=== PATIENT | male | born 1950 | race Caucasian/White ===

== ENCOUNTER 2017-01-21 13:32 | Inpatient (IN) | payer MEDICARE, OTHER ==
[~2017-01-21] VITALS: Ht 172.7 cm; Wt 83.5 kg
--- NOTE | 2017-01-21 14:11 | NUR ---
Pt to CT/xray via AYALA mcelroy noted.
[2017-01-21 14:26] LABS: CALCIUM 8.9 mg/dL (8.5-10.1); CARBON DIOXIDE 29 mmol/L (21-32); CHLORIDE 101 mmol/L (98-107); GFR 43 mL/min (>60); GLUCOSE 275 mg/dL (74-106); POTASSIUM 4.2 mmol/L (3.5-5.1); SODIUM SERUM 139 mmol/L (136-145); UREA NITROGEN, BLOOD 21 mg/dL (7-18)
[2017-01-21 14:27] LABS: *BILIRUBIN,URIN NEGATIVE (NEGATIVE); *BLOOD, URINE Trace-lysed (NEGATIVE); *CLARITY,URINE CLEAR (CLEAR); *COLOR,URINE YELLOW (YELLOW); *KETONES,URINE NEGATIVE (NEGATIVE); *PROTEIN,URINE 2+ (NEGATIVE); *UROBILINOGEN,URINE 0.2 E.U./dl (NORMAL); BASOPHILS % (AUTO) 0.6 % (0.0-2.0); EOSINOPHILS # (AUTO) 0.2 K/uL (0.0-0.7); EOSINOPHILS % (AUTO) 2.5 % (0.0-7.0); HEMATOCRIT 41.4 % (40-50); LEUKOCYTE ESTERASE ,URINE NEGATIVE (NEGATIVE); LYMPHOCYTES # (AUTO) 1.7 K/UL (0.8-4.8); LYMPHOCYTES % (AUTO) 25.5 % (20.5-51.5); MEAN CORPUSCULAR HEMOGLOBIN 31.1 UUG (27.0-31.0); MEAN CORPUSCULAR HGB CONC 34 g/dL (32.0-37.0); MEAN CORPUSCULAR VOLUME 91.8 FL (82.0-92.0); MONOCYTES # (AUTO) 0.5 K/UL (0.1-1.30); MONOCYTES % (AUTO) 6.9 % (0.0-11.0); NEUTROPHILS # (AUTO) 4.4 K/UL (1.8-8.9); NEUTROPHILS % (AUTO) 64.5 % (38.5-71.5); NITRITE, URINE NEGATIVE (NEGATIVE); PH,URINE 5.5 (5.0-8.0); PLATELET COUNT (AUTO) 308 K/UL (150-450); RED BLOOD CELL COUNT(AUTO) 4.51 MIL/UL (4.7-6.1); RED CELL DISTRIBUTION WIDTH 12.9 % (11.5-14.5); WHITE BLOOD COUNT (AUTO) 6.8 K/UL (4.0-11.2)
[2017-01-21 14:31] LABS: CREATININE 1.6 mg/dL (0.6-1.3)
[2017-01-21 14:34] LABS: ALANINE AMINOTRANSFERASE 14 U/L (16-63); ALBUMIN 3.6 g/dL (3.4-5.0); ALKALINE PHOSPHATASE 95 U/L (50-136); ASPARTATE AMINOTRANSFERASE 9 U/L (15-37); BILIRUBIN,DIRECT 0.1 mg/dL (0.0-0.2); BILIRUBIN,TOTAL 0.2 mg/dL (0.2-1.0); TOTAL PROTEIN, SERUM 8.7 g/dL (6.4-8.2); TROPONIN I < 0.017 ng/mL (0.00-0.056)
[2017-01-21 14:35] LABS: ACETAMINOPHEN < 2.0 ug/mL (10-30)
[2017-01-21 14:40] LABS: LACTIC ACID 1.2 mmol/L (0.4-2.0)
[2017-01-21 14:42] LABS: UGLUCOSE 2+ (NEGATIVE)
[2017-01-21 14:45] LABS: ETHANOL < 3 MG/DL (0-0)
[2017-01-21 14:46] LABS: *AMPHETAMINE, URINE NEGATIVE (NEGATIVE); *BARBITURATE, URINE NEGATIVE (NEGATIVE); *CANNABINOID, URINE NEGATIVE (NEGATIVE); *COCCAINE, URINE NEGATIVE (NEGATIVE); *OPIATE, URINE NEGATIVE (NEGATIVE); *PHENCYCLIDINE SCREEN,URINE NEGATIVE (NEGATIVE)
[2017-01-21 14:49] LABS: AMMONIA < 10 umol/L (11-32)
[2017-01-21 14:54] LABS: RBC,URINE 0-3 /HPF (0-3); SQUAMOUS EPITHELIAL CELL,UR FEW /HPF (NONE SEEN); WBC,URINE 0-3 /HPF (0-3)
--- NOTE | 2017-01-21 15:07 | NUR ---
Per Dr Bradshaw pt is medically clear and may be trans to MHU.
[2017-01-21 15:10] LABS: THYROID STIMULATING HORMONE 0.627 mIU/mL (0.358-3.740)
--- NOTE | 2017-01-21 15:31 | NUR ---
Pt trans to [facility]HU, NAD noted.
[2017-01-21] MEDS ORDERED: TEMAZEPAM 7.5 MG CAPSULE PO PRN (16:45)
[2017-01-21] MEDS ORDERED: MAG HYDROX/AL HYDROX/SIMETH 30 ML LIQUID UDC PO PRN (16:45)
[2017-01-21] MEDS ORDERED: ACETAMINOPHEN 325 MG TABLET PO PRN (16:45)
[2017-01-21] MEDS ORDERED: MAGNESIUM HYDROXIDE 30 ML LIQUID UDC PO PRN (16:45)
[2017-01-21] MEDS ORDERED: ACETAMINOPHEN 650 MG SUPP.RECT RC PRN (16:45)
[2017-01-21] MEDS ORDERED: LORAZEPAM 0.5 MG TABLET PO PRN (16:45)
--- NOTE | 2017-01-21 17:00 | NUR ---
Patient admitted from [facility]. Patient reportedly found wondering multiple times outside of the facility. Patient redirected multiple times. Patient even tried taking a bus to see his family , according to patient. Patient does not know where any of his family members live. Patient has history of hypertension and diabetes. MD notified. Md to put in orders.
[2017-01-21] MEDS ORDERED: MELA3TAB PO (18:58)
[2017-01-21] MEDS ORDERED: LISI-603 PO (18:58)
[2017-01-21] MEDS ORDERED: DONE10TA44 PO (18:58)
[2017-01-21] MEDS ORDERED: SIMV20TA6 PO (18:58)
[2017-01-21] MEDS ORDERED: LINA5TAB PO (18:58)
[2017-01-21 20:00] VITALS: BP 142/89
[2017-01-22 07:13] LABS: BASOPHILS % (AUTO) 0.5 % (0.0-2.0); EOSINOPHILS # (AUTO) 0.2 K/uL (0.0-0.7); EOSINOPHILS % (AUTO) 2.8 % (0.0-7.0); HEMATOCRIT 40.8 % (40-50); HEMOGLOBIN 13.7 G/DL (14.0-18.0); LYMPHOCYTES # (AUTO) 1.7 K/UL (0.8-4.8); LYMPHOCYTES % (AUTO) 29.2 % (20.5-51.5); MEAN CORPUSCULAR HEMOGLOBIN 30.9 UUG (27.0-31.0); MEAN CORPUSCULAR HGB CONC 34 g/dL (32.0-37.0); MEAN CORPUSCULAR VOLUME 91.5 FL (82.0-92.0); MONOCYTES # (AUTO) 0.4 K/UL (0.1-1.30); MONOCYTES % (AUTO) 7.4 % (0.0-11.0); NEUTROPHILS # (AUTO) 3.4 K/UL (1.8-8.9); NEUTROPHILS % (AUTO) 60.1 % (38.5-71.5); PLATELET COUNT (AUTO) 309 K/UL (150-450); RED BLOOD CELL COUNT(AUTO) 4.45 MIL/UL (4.7-6.1); RED CELL DISTRIBUTION WIDTH 12.9 % (11.5-14.5); WHITE BLOOD COUNT (AUTO) 5.8 K/UL (4.0-11.2)
[2017-01-22 07:30] VITALS: BP 141/83
[2017-01-22] MEDS: DIVALPROEX 125 MG TABLET.DR PO SCH ×3 (08:05→16:15)
[2017-01-22 08:06] LABS: ALBUMIN 3.4 g/dL (3.4-5.0); BILIRUBIN,TOTAL 0.6 mg/dL (0.2-1.0); CREATININE 1.2 mg/dL (0.6-1.3); PHOSPHOROUS 2.6 mg/dL (2.5-4.9); POTASSIUM 4.3 mmol/L (3.5-5.1); TOTAL PROTEIN, SERUM 8.3 g/dL (6.4-8.2)
[2017-01-22] MEDS ORDERED: DEXTROSE 50% 50 ML DISP.SYRIN IV PRN (09:00)
[2017-01-22] MEDS: METFORMIN HCL 500 MG TABLET PO SCH ×2 (09:13→17:09)
[2017-01-22] MEDS: glipiZIDE 5 MG TABLET PO SCH ×2 (09:13→15:53)
[2017-01-22] MEDS: LISINOPRIL 5 MG TABLET PO SCH (09:13)
[2017-01-22] MEDS: BLOOD SUGAR DIAGNOSTIC 1 EACH STRIP VI SCH ×3 (11:47→21:06)
[2017-01-22] MEDS: INSULIN REGULAR, HUMAN 300 UNIT/3 ML VIAL SQ PRN (11:49)
[2017-01-22 15:00] VITALS: BP 109/66
[2017-01-22 20:21] VITALS: BP 105/69
[2017-01-23] MEDS: BLOOD SUGAR DIAGNOSTIC 1 EACH STRIP VI SCH ×4 (06:27→20:35)
[2017-01-23 07:30] VITALS: BP 105/65
[2017-01-23] MEDS: LISINOPRIL 5 MG TABLET PO SCH (08:10)
[2017-01-23] MEDS: glipiZIDE 5 MG TABLET PO SCH ×2 (08:10→16:07)
[2017-01-23] MEDS: METFORMIN HCL 500 MG TABLET PO SCH ×2 (08:10→17:16)
[2017-01-23] MEDS: DIVALPROEX 125 MG TABLET.DR PO SCH ×3 (08:10→16:07)
[2017-01-23 16:18] VITALS: BP 139/78
--- NOTE | 2017-01-23 17:17 | NUR ---
Pt remains calm and cooperative. Compliant with medications and care. No aggresive or combative behavior noted. Blood glucose noted 59 mg/dl. Metformin held. Pt is asymptomatic. Administered 2 cups of orange juice with sugar. Will continue to monitor.
[2017-01-23 20:00] VITALS: BP 134/81
[2017-01-24] MEDS: BLOOD SUGAR DIAGNOSTIC 1 EACH STRIP VI SCH ×4 (06:22→20:56)
[2017-01-24] MEDS ORDERED: glipiZIDE 5 MG TABLET PO SCH (07:30)
[2017-01-24 07:45] VITALS: BP 110/58
[2017-01-24] MEDS: DIVALPROEX 125 MG TABLET.DR PO SCH ×4 (09:26→20:55)
[2017-01-24] MEDS: METFORMIN HCL 500 MG TABLET PO SCH ×2 (09:27→17:06)
[2017-01-24] MEDS: LISINOPRIL 5 MG TABLET PO SCH (09:27)
--- NOTE | 2017-01-24 12:32 | NUR ---
Initial discharge instructions: Pt resides at [facility] [[address] [place], [place],[address];[phone]].Pt was confused and unable to report if he wanted to return back.Per daughterRenee [phone] she agrees to pt either returning back there or possibly SNF if recommended.SW called and left voicemail for Nieves at the facility.SW will speak with pt,family,and MD regarding appropriate discharge plans.SW will form a safe and proper discharge.
[2017-01-24 20:40] VITALS: BP 107/59
--- NOTE | 2017-01-24 20:40 | NUR ---
PT'S A/A/O X2 AND ABLE TO USE WHEELCHAIR TO BATHROOM APPROPRIATELY BEHAVIOR,COOPERATIVE W/CARE AND MEDICATIONS NOTED.SNACK'S GIVEN PRIOR TO BED DUE TO EPISODE OF HYPOGLYCEMIA DURING THE DAY TIME TODAY,PT'S ABLE TO TOLERATED WELL WITH SNACK;100% NOTED.KEPT COMFORT.PT'S ABLE TO GO BACK TO BED UNDER SUPERVISION.KEPT COMFORT.CONTINUED MONITORING TO PT.
--- NOTE | 2017-01-25 06:00 | NUR ---
ASSISTED PT TO TAKE SHOWER THIS MORNING;PT'S COOPERATIVE W/ASSISTANCE.NO DISTRESS NOTED IN THE SHIFT.PT SLEPT FOR 8 HOURS 30 MINUTES.NO DISTRESS NOTED IN THE SHIFT.PT REMAINED FREE FROM INJURY.SAFETY RENDER.
[2017-01-25 07:30] VITALS: BP 96/54
[2017-01-25] MEDS: DIVALPROEX 125 MG TABLET.DR PO SCH ×2 (08:28→20:25)
[2017-01-25] MEDS: METFORMIN HCL 500 MG TABLET PO SCH ×2 (08:28→17:44)
[2017-01-25] MEDS: LISINOPRIL 5 MG TABLET PO SCH (08:29)
[2017-01-25] MEDS: BLOOD SUGAR DIAGNOSTIC 1 EACH STRIP VI SCH ×3 (11:36→20:26)
[2017-01-25 16:09] VITALS: BP 119/69
[2017-01-25 20:25] VITALS: BP 125/76
[2017-01-25] MEDS: INSULIN REGULAR, HUMAN 300 UNIT/3 ML VIAL SQ PRN (20:29)
[2017-01-26] MEDS: BLOOD SUGAR DIAGNOSTIC 1 EACH STRIP VI SCH ×4 (06:19→20:33)
[2017-01-26 07:30] VITALS: BP 111/73
[2017-01-26] MEDS: METFORMIN HCL 500 MG TABLET PO SCH ×2 (08:39→18:31)
[2017-01-26] MEDS: DIVALPROEX 125 MG TABLET.DR PO SCH ×2 (08:39→20:25)
[2017-01-26] MEDS: ESCITALOPRAM OXALATE 10 MG TABLET PO SCH (08:39)
[2017-01-26] MEDS: LISINOPRIL 5 MG TABLET PO SCH (08:49)
[2017-01-26 16:00] VITALS: BP 143/87
[2017-01-26] MEDS: INSULIN REGULAR, HUMAN 300 UNIT/3 ML VIAL SQ PRN ×2 (17:18→20:42)
[2017-01-26 20:05] VITALS: BP 120/75
--- NOTE | 2017-01-26 22:00 | NUR ---
received to care, lying in bed, isolating by self, but pleasant upon approach. compliant with medications and staff direction. bedtime snack given. as of 2200, he appears to be asleep. no distress noted. will continue to monitor closely.
--- NOTE | 2017-01-27 06:00 | NUR ---
slept 7.5 hours. assisted with am care, and shower. no distress noted.
[2017-01-27] MEDS: BLOOD SUGAR DIAGNOSTIC 1 EACH STRIP VI SCH ×4 (06:50→20:41)
[2017-01-27 07:30] VITALS: BP 111/7
[2017-01-27] MEDS: ESCITALOPRAM OXALATE 10 MG TABLET PO SCH (09:43)
[2017-01-27] MEDS: METFORMIN HCL 500 MG TABLET PO SCH ×2 (09:43→17:18)
[2017-01-27] MEDS: DIVALPROEX 125 MG TABLET.DR PO SCH ×2 (09:43→20:25)
[2017-01-27] MEDS: LISINOPRIL 5 MG TABLET PO SCH (09:44)
[2017-01-27] MEDS: INSULIN REGULAR, HUMAN 300 UNIT/3 ML VIAL SQ PRN ×2 (12:46→20:44)
[2017-01-27 16:00] VITALS: BP 125/75
[2017-01-27 20:21] VITALS: BP 131/77
--- NOTE | 2017-01-28 06:00 | NUR ---
slept 5.5 hours, total. continues to sleep. no distress noted.
[2017-01-28] MEDS: BLOOD SUGAR DIAGNOSTIC 1 EACH STRIP VI SCH ×2 (06:49→13:15)
[2017-01-28 07:25] LABS: CALCIUM 8.7 mg/dL (8.5-10.1); POTASSIUM 4.8 mmol/L (3.5-5.1)
[2017-01-28 07:30] VITALS: BP 101/62
[2017-01-28 07:33] LABS: CREATININE 1.6 mg/dL (0.6-1.3)
--- NOTE | 2017-01-28 08:23 | NUR ---
DC note: Patient will be discharged to [facility] [[address] [place] [address]; ] via ambulance at 1:00 pm. Please schedule an ambulance for the patient. Spoke with Neena at the facility who stated she would accept the patient today. Patient is assigned to room 24C. Spoke with patient's Daughter, Renee [phone] who is aware and agreeable with discharge plans. Patient is aware and agreeable with discharge plans. Patient will follow-up with (Wad Impregnator) and (Psychiatrist) at the facility.
[2017-01-28] MEDS: DIVALPROEX 125 MG TABLET.DR PO SCH (08:52)
[2017-01-28] MEDS: ESCITALOPRAM OXALATE 10 MG TABLET PO SCH (08:52)
[2017-01-28] MEDS: METFORMIN HCL 500 MG TABLET PO SCH (08:52)
[2017-01-28 08:53] VITALS: BP 101/62
[2017-01-28] MEDS: LISINOPRIL 5 MG TABLET PO SCH (08:53)
--- NOTE | 2017-01-28 15:43 | NUR ---
PT IS ALERT/ORIENTED X 3. PT IS AWARE OF HIS DISCHARGE AND WILLING TO GO. NO DISTRESS NOTED. PT IS BEING DISCHARGED TO [facility]. PT IS BEING PICKED UP BY THE AMBULANCE. REPORT WAS CALLED AND GIVEN TO NICOLE MC. ALL BELONGING RETURNED.
== END 2017-01-28 15:30 | DRG 885 ==
LOC: ER 13:34 → GPS 16:05
PROVIDERS: ADMIT Psychiatry & Neurology Psychiatry; ATTEND Psychiatry & Neurology Psychiatry
DX: F39 Unspecified mood [affective] disorder (principal); F01.50 Vascular dementia, unspecified severity, without behavioral disturbance, psychotic disturbance, mood disturbance, and anxiety; N17.0 Acute kidney failure with tubular necrosis; E11.65 Type 2 diabetes mellitus with hyperglycemia; F29 Unspecified psychosis not due to a substance or known physiological condition; E78.5 Hyperlipidemia, unspecified; H02.402 Unspecified ptosis of left eyelid; I10 Essential (primary) hypertension; Z86.73 Personal history of transient ischemic attack (TIA), and cerebral infarction without residual deficits; Z91.19 Patient's noncompliance with other medical treatment and regimen; E11.649 Type 2 diabetes mellitus with hypoglycemia without coma
CPT/HCPCS: 36415; 70030-TC; 70450; 71010; 76705; 80307; 82306; 83605; 83735; 84100; 84443; 85025; 85730; 87040; 87086; 93005; 97001; 97116; 97530; A4663; G0480-TC; G6040-TC; J1815

== ENCOUNTER 2018-04-08 23:36 | Inpatient (IN) | payer MEDICARE, OTHER ==
[~2018-04-08] VITALS: Ht 172.7 cm; Wt 73.5 kg
[~2018-04-08 23:36] MED LIST: LINA5TAB PO; LISI-603 PO; MELA3TAB PO; SIMV20TA6 PO
[2018-04-09] MEDS ORDERED: CEFTRIAXONE 1 G in IV DEXTROSE 5% 50 ML IV ONE ×2
[2018-04-09] MEDS ORDERED: IV NORMAL SALINE 500 ML BAG IV ONE
--- NOTE | 2018-04-09 00:02 | NUR ---
PT IN BED RESTING QUIETLY. PT IS AAOX1. PT'S LUNG SOUNDS ARE CLEAR BILATERALLY AND BREATH SOUND ARE EVEN AND UNLABORED. PT'S ABDOMEN IS FLAT AND NON-TENDER W/ BOWEL SOUNDS PRESENT IN ALL 4 QUADRANTS. CAP REFILL <3 SEC IN ALL FOUR EXTREMITIES. PT IS CALM AND COOPERATIVE. NO SIGNS OF DISTRESS WITNESSED AT THIS TIME.
[2018-04-09 00:29] LABS: BASOPHILS % (AUTO) 0.3 % (0.0-2.0); EOSINOPHILS % (AUTO) 0.1 % (0.0-7.0); HEMATOCRIT 30.3 % (36.7-47.1); HEMOGLOBIN 10.7 g/dL (12.5-16.3); LYMPHOCYTES # (AUTO) 1.3 K/uL (20.0-40.0); LYMPHOCYTES % (AUTO) 14.9 % (20.5-51.5); MEAN CORPUSCULAR HEMOGLOBIN 33.9 uug (23.8-33.4); MEAN CORPUSCULAR HGB CONC 35 g/dL (32.5-36.3); MEAN CORPUSCULAR VOLUME 95.9 fL (73.0-96.2); MONOCYTES # (AUTO) 0.8 K/uL (2.0-10.0); MONOCYTES % (AUTO) 8.7 % (0.0-11.0); NEUTROPHILS # (AUTO) 6.7 K/uL (1.8-8.9); PLATELET COUNT (AUTO) 194 K/uL (152-348); RED BLOOD CELL COUNT(AUTO) 3.16 MIL/uL (4.06-5.63); WHITE BLOOD COUNT (AUTO) 8.8 K/uL (3.6-10.2)
[2018-04-09] MEDS ORDERED: ESCI10TA PO (00:38)
[2018-04-09] MEDS ORDERED: LISI-607 PO (00:38)
[2018-04-09] MEDS ORDERED: ONDA4TAB8 PO (00:38)
[2018-04-09] MEDS ORDERED: LORA0.5T PO (00:38)
[2018-04-09] MEDS ORDERED: DIVA125C PO (00:38)
[2018-04-09] MEDS ORDERED: METF10004 PO (00:38)
[2018-04-09] MEDS ORDERED: DOCU100C36 PO (00:38)
[2018-04-09] MEDS ORDERED: TEMA15CA PO (00:38)
[2018-04-09] MEDS ORDERED: DONE10TA44 PO (00:38)
[2018-04-09] MEDS ORDERED: CEFTRIAXONE 1 G VIAL ONE (00:39)
[2018-04-09 00:43] LABS: CREATININE 1.7 mg/dL (0.6-1.3); POTASSIUM 5.1 mmol/L (3.5-5.1)
[2018-04-09] MEDS ORDERED: LIDOCAINE 2% (UROJET) 10 ML JELLY MM ONE ×2 (00:47)
[2018-04-09 00:55] LABS: BILIRUBIN,DIRECT 0.2 mg/dL (0.0-0.2); BILIRUBIN,TOTAL 0.5 mg/dL (0.2-1.0); TOTAL PROTEIN, SERUM 6.6 g/dL (6.4-8.2)
--- NOTE | 2018-04-09 00:55 | NUR ---
SKIN IRRITATION NOTED ON PENIS--LOOKS LIKE POTENTIAL INFECTION. MD HERBERT MADE AWARE.
[2018-04-09 01:18] LABS: *BILIRUBIN,URIN NEGATIVE (NEGATIVE); *BLOOD, URINE NEGATIVE (NEGATIVE); *CLARITY,URINE CLEAR (CLEAR); *COLOR,URINE YELLOW (YELLOW); *KETONES,URINE NEGATIVE (NEGATIVE); *PROTEIN,URINE NEGATIVE (NEGATIVE); LEUKOCYTE ESTERASE ,URINE NEGATIVE (NEGATIVE); NITRITE, URINE NEGATIVE (NEGATIVE); UGLUCOSE NEGATIVE (NEGATIVE)
[2018-04-09 01:32] LABS: BACTERIA,URINE NONE SEEN /HPF (NONE SEEN); RBC,URINE NONE SEEN /HPF (0-3); SQUAMOUS EPITHELIAL CELL,UR FEW /HPF (NONE SEEN); WBC,URINE 0-3 /HPF (0-3)
--- NOTE | 2018-04-09 01:35 | NUR ---
PANEL CALL PLACED TO [facility] FOR ADMISSION
--- NOTE | 2018-04-09 01:50 | NUR ---
REPORT GIVEN TO MEDSUR NURSELY RN
[2018-04-09] MEDS ORDERED: Z GUARD REMEDY PASTE 57 GM TUBE TOP PRN (02:15)
[2018-04-09] MEDS ORDERED: MELATONIN 3 MG TABLET PO PRN (02:15)
[2018-04-09] MEDS ORDERED: MAGNESIUM HYDROXIDE 30 ML LIQUID UDC PO PRN (02:15)
[2018-04-09] MEDS ORDERED: DEXTROSE 50% 50 ML DISP.SYRIN IV PRN (02:15)
[2018-04-09] MEDS ORDERED: LORAZEPAM 0.5 MG TABLET PO PRN (02:15)
[2018-04-09] MEDS ORDERED: ONDANSETRON 4 MG/2 ML VIAL IV PRN (02:15)
[2018-04-09] MEDS ORDERED: ACETAMINOPHEN 325 MG TABLET PO PRN (02:15)
[2018-04-09] MEDS ORDERED: HYDROCODONE/APAP 5-325MG TABLET PO PRN (02:15)
[2018-04-09] MEDS ORDERED: TEMAZEPAM 15 MG CAPSULE PO PRN (02:15)
--- NOTE | 2018-04-09 02:15 | NUR ---
Pt. admitted to [facility], under care of CHARISSA GLASS Belongs List completed
[2018-04-09 03:00] VITALS: BP 90/56
[2018-04-09] MEDS: IV NS 1000 ML 1,000 ML IV PRN ×2 (03:25→16:43)
--- NOTE | 2018-04-09 04:00 | NUR ---
Pt transferred to room 210. Pt oriented to room. Call light within reach. Perineal care provided by TRIMMING ASSEMBLER. Noted patient has ulcer on right penis area. Photographed and placed in chart. Noted R AC 18G intact and patent. NS at 75cc/hr initiated. No complaints of pain at this time. Frequent visual checks done. Noted temperature now 98.2. No s/s of hyper or hypoglycemia noted. Will continue to monitor.
[2018-04-09] MEDS: BLOOD SUGAR DIAGNOSTIC 1 EACH STRIP VI SCH ×4 (06:25→20:10)
--- NOTE | 2018-04-09 06:29 | NUR ---
Telma-care provided second time by MARYURI. Patient BGL checked and noted to be 110mg/dl. No coverage given. IV site continues to remain intact and patent. No complaints of pain. Bed alarm engaged. Bed in low position. Call light in reach. Will continue to monitor.
[2018-04-09 08:00] VITALS: BP 106/60
--- NOTE | 2018-04-09 08:00 | NUR ---
AWAKE COOPERATE NO SOB OR PAIN VS TAKEN NO FEVER EAT BREAKFAST WELL FLD RESTRICTION 1000ML/DAY ORDER ON ASPIRATION AND FALL PRECAUTION BED ALARM ON AND CALL LIGHT IN REACH
[2018-04-09] MEDS: DOCUSATE SODIUM 100 MG CAPSULE PO SCH ×2 (08:39→16:49)
[2018-04-09] MEDS: ESCITALOPRAM OXALATE 10 MG TABLET PO SCH (08:40)
[2018-04-09] MEDS: DIVALPROEX SPRINKLE 125 MG CAP.SPRINK PO SCH ×2 (08:40→20:10)
[2018-04-09] MEDS ORDERED: LISINOPRIL 5 MG TABLET PO SCH (09:00)
[2018-04-09 11:14] VITALS: BP 99/63
[2018-04-09] MEDS: INSULIN REGULAR, HUMAN 300 UNIT/3 ML VIAL SQ PRN ×2 (11:57→20:08)
[2018-04-09 12:52] LABS: *CREATININE,URINE 62.2 mg/dL (30-125); *URINE TOTAL PROTEIN RANDOM 12.9 mg/dL (<150/24HR)
[2018-04-09 12:55] LABS: *BILIRUBIN,URIN NEGATIVE (NEGATIVE); *BLOOD, URINE NEGATIVE (NEGATIVE); *CLARITY,URINE CLEAR (CLEAR); *COLOR,URINE YELLOW (YELLOW); *KETONES,URINE NEGATIVE (NEGATIVE); *PROTEIN,URINE NEGATIVE (NEGATIVE); LEUKOCYTE ESTERASE ,URINE NEGATIVE (NEGATIVE); NITRITE, URINE NEGATIVE (NEGATIVE); PH,URINE 8.5 (5.0-8.0); UGLUCOSE NEGATIVE (NEGATIVE)
[2018-04-09 13:04] LABS: BACTERIA,URINE NONE SEEN /HPF (NONE SEEN); RBC,URINE 0-3 /HPF (0-3); SQUAMOUS EPITHELIAL CELL,UR FEW /HPF (NONE SEEN); WBC,URINE 0-3 /HPF (0-3)
[2018-04-09 15:33] VITALS: BP 101/57
--- NOTE | 2018-04-09 17:50 | NUR ---
STABLE HEMODYNAMIC STATUS MORE AWAKE AND ORTX2 FOLLOW SIMPLE DIRECTION WELL NO ACUTE DISTRESS OR PAIN SAFETY MEASURE PROVIDED CALL LIGHT IN REACH
[2018-04-09 19:00] VITALS: BP 106/65
[2018-04-09] MEDS: DONEPEZIL 10 MG TABLET PO SCH (20:11)
--- NOTE | 2018-04-09 21:00 | NUR ---
Nursing Note: Pt resting in bed eyes open. Able to respond yes/no to questions. Noted with periods of confusion. Perineal care provided by PEDIATRIC MEDICAL ASSISTANT x 2. No BM noted at this time. Noted R AC 18G intact and patent infusing normal saline at 75cc/hr . No signs and symptoms of infiltration noted at site. BGL checked and insulin given per sliding scale. No complaints of pain at this time. Frequent visual checks done. Pt afebrile. No s/s of hyper or hypoglycemia noted. Will continue to monitor.
--- NOTE | 2018-04-10 01:00 | NUR ---
Nursing Notes: Pt noted with periods of wakefulness and sleeping. Antibiotic administered. Will monitor for adverse reactions. Bed kept in low position. Pt kept clean and dry. Bed in low position. No acute distress noted. No fever noted this shift. Frequent visual checks. Will continue to monitor.
[2018-04-10] MEDS: CEFTRIAXONE 1 G in IV DEXTROSE 5% 50 ML IV SCH (01:28)
[2018-04-10 04:00] VITALS: BP 131/70
[2018-04-10 06:07] LABS: BASOPHILS % (AUTO) 0.4 % (0.0-2.0); EOSINOPHILS # (AUTO) 0.1 K/uL (0.0-0.7); EOSINOPHILS % (AUTO) 1.7 % (0.0-7.0); HEMATOCRIT 31.9 % (36.7-47.1); LYMPHOCYTES # (AUTO) 1.1 K/uL (20.0-40.0); LYMPHOCYTES % (AUTO) 22.8 % (20.5-51.5); MEAN CORPUSCULAR HEMOGLOBIN 32.8 uug (23.8-33.4); MEAN CORPUSCULAR HGB CONC 35 g/dL (32.5-36.3); MEAN CORPUSCULAR VOLUME 94.7 fL (73.0-96.2); MONOCYTES # (AUTO) 0.5 K/uL (2.0-10.0); MONOCYTES % (AUTO) 10.2 % (0.0-11.0); NEUTROPHILS # (AUTO) 3.2 K/uL (1.8-8.9); NEUTROPHILS % (AUTO) 64.9 % (38.5-71.5); PLATELET COUNT (AUTO) 186 K/uL (152-348); RED BLOOD CELL COUNT(AUTO) 3.37 MIL/uL (4.06-5.63); WHITE BLOOD COUNT (AUTO) 4.9 K/uL (3.6-10.2)
[2018-04-10] MEDS: IV NS 1000 ML 1,000 ML IV PRN (06:15)
[2018-04-10 06:24] LABS: BILIRUBIN,TOTAL 0.2 mg/dL (0.2-1.0); CREATININE 1.2 mg/dL (0.6-1.3); MAGNESIUM 1.4 mg/dL (1.8-2.4); PHOSPHOROUS 3.5 mg/dL (2.5-4.9); POTASSIUM 4.5 mmol/L (3.5-5.1); TOTAL PROTEIN, SERUM 6.5 g/dL (6.4-8.2)
[2018-04-10 06:30] LABS: THYROID STIMULATING HORMONE 1.082 mIU/mL (0.358-3.740)
[2018-04-10] MEDS: BLOOD SUGAR DIAGNOSTIC 1 EACH STRIP VI SCH ×4 (06:39→20:36)
[2018-04-10] MEDS: DIVALPROEX SPRINKLE 125 MG CAP.SPRINK PO SCH ×2 (08:32→20:35)
[2018-04-10] MEDS: ESCITALOPRAM OXALATE 10 MG TABLET PO SCH (08:32)
[2018-04-10] MEDS: DOCUSATE SODIUM 100 MG CAPSULE PO SCH ×2 (08:32→16:56)
[2018-04-10] MEDS ORDERED: ENOXAPARIN SODIUM 30 MG/0.3 ML DISP.SYRIN SUBCUT SCH (08:45)
[2018-04-10] MEDS: ENOXAPARIN SODIUM 40 MG/0.4 ML DISP.SYRIN SQ SCH (09:28)
[2018-04-10] MEDS ORDERED: MAGNESIUM SULFATE 1 GM in IV DEXTROSE 5% 50 ML IV ONE (10:30)
[2018-04-10 11:30] VITALS: BP 116/60
--- NOTE | 2018-04-10 13:48 | NUR ---
pt not npo for abdominal us. spoke to debra villanueva and will place pt npo after midnight. ultrasound well be done tmrw AM
[2018-04-10 15:09] VITALS: BP 100/58
[2018-04-10] MEDS: INSULIN REGULAR, HUMAN 300 UNIT/3 ML VIAL SQ PRN ×2 (16:54→20:34)
--- NOTE | 2018-04-10 18:43 | NUR ---
PT KEPT CLEAN AND DRY, NO SIGNS OF SKIN BREAK DOWN, PT NOW HEP LOCK, BED IN LOW AND LOCKED POSITION. NO ACUTE DISTRESS NOTED, NO SIGNS OF FEVER DURING SHIFT. PT IS INTERMITTENTLY SLEEPING AND AWAKE, AOX1. PT ATTEMPTS TO FEED SELF BUT IS GIVEN ASSISTANCE. CONTINUE TO MONITOR PT.
--- NOTE | 2018-04-10 19:15 | NUR ---
RECEIVED PT AWAKE, ALERT, ORIENTEDX1. PT SHOWS NO SIGNS OF ACUTE DISTRESS. IV INTACT AND PATENT. BED ALARM ON. SAFETY AND COMFORT PROVIDED. WILL CONTINUE TO MONITOR.
[2018-04-10 20:17] VITALS: BP 109/60
[2018-04-10] MEDS: DONEPEZIL 10 MG TABLET PO SCH (20:35)
[2018-04-11] MEDS: CEFTRIAXONE 1 G in IV DEXTROSE 5% 50 ML IV SCH (00:24)
[2018-04-11 04:00] VITALS: BP 120/78
--- NOTE | 2018-04-11 06:06 | NUR ---
PT SLEPT THROUGHOUT THE SHIFT. PT SHOWS NO SIGNS OF DISTRESS. PRESCRIBED MEDICATION GIVEN AND PT TOLERATED IT WELL.CALL LIGHT WITHIN REACH.IV INTACT AND PATENT.SAFETY AND COMFORT PROVIDED. WILL ENDORSE ACCORDINGLY FOR CONTINUITY OF CARE.
[2018-04-11] MEDS: BLOOD SUGAR DIAGNOSTIC 1 EACH STRIP VI SCH ×4 (06:32→20:54)
[2018-04-11 06:46] LABS: BASOPHILS % (AUTO) 0.4 % (0.0-2.0); EOSINOPHILS # (AUTO) 0.1 K/uL (0.0-0.7); EOSINOPHILS % (AUTO) 2.9 % (0.0-7.0); HEMATOCRIT 32.8 % (36.7-47.1); HEMOGLOBIN 11.6 g/dL (12.5-16.3); LYMPHOCYTES # (AUTO) 1.5 K/uL (20.0-40.0); LYMPHOCYTES % (AUTO) 32.4 % (20.5-51.5); MEAN CORPUSCULAR HEMOGLOBIN 33.6 uug (23.8-33.4); MEAN CORPUSCULAR HGB CONC 35 g/dL (32.5-36.3); MEAN CORPUSCULAR VOLUME 95.1 fL (73.0-96.2); MONOCYTES # (AUTO) 0.6 K/uL (2.0-10.0); MONOCYTES % (AUTO) 12.5 % (0.0-11.0); NEUTROPHILS # (AUTO) 2.4 K/uL (1.8-8.9); NEUTROPHILS % (AUTO) 51.8 % (38.5-71.5); PLATELET COUNT (AUTO) 202 K/uL (152-348); RED BLOOD CELL COUNT(AUTO) 3.45 MIL/uL (4.06-5.63); WHITE BLOOD COUNT (AUTO) 4.7 K/uL (3.6-10.2)
[2018-04-11 07:05] LABS: BILIRUBIN,TOTAL 0.2 mg/dL (0.2-1.0); CREATININE 1.2 mg/dL (0.6-1.3); MAGNESIUM 1.7 mg/dL (1.8-2.4); POTASSIUM 4.2 mmol/L (3.5-5.1); TOTAL PROTEIN, SERUM 6.4 g/dL (6.4-8.2)
[2018-04-11] MEDS: DOCUSATE SODIUM 100 MG CAPSULE PO SCH ×2 (08:15→16:42)
[2018-04-11] MEDS: DIVALPROEX SPRINKLE 125 MG CAP.SPRINK PO SCH ×2 (08:15→20:50)
[2018-04-11] MEDS: ESCITALOPRAM OXALATE 10 MG TABLET PO SCH (08:15)
[2018-04-11] MEDS: ENOXAPARIN SODIUM 40 MG/0.4 ML DISP.SYRIN SQ SCH (08:17)
[2018-04-11 11:32] VITALS: BP 123/71
[2018-04-11 16:00] VITALS: BP 132/79
--- NOTE | 2018-04-11 18:42 | NUR ---
PT IS RESTING IN BED, WITH NO SIGNS OF RESPIRATORY DISTRESS. CALM, COOPERATIVE, AOX1. CONTINUE TO MONITOR.
--- NOTE | 2018-04-11 20:00 | NUR ---
Observed to be resting with no s/s of acute distress noted at this time. Safe environment implemented at all times.
[2018-04-11 20:04] VITALS: BP 120/67
[2018-04-11] MEDS: DONEPEZIL 10 MG TABLET PO SCH (20:51)
[2018-04-12] MEDS: CEFTRIAXONE 1 G in IV DEXTROSE 5% 50 ML IV SCH (00:28)
[2018-04-12 04:42] VITALS: BP 115/65
[2018-04-12 06:06] LABS: HEPATITIS B SURFACE AB Reactive (.); HEPATITIS B SURFACE AG Negative (Negative)
[2018-04-12] MEDS: BLOOD SUGAR DIAGNOSTIC 1 EACH STRIP VI SCH ×3 (06:32→16:30)
--- NOTE | 2018-04-12 06:57 | NUR ---
No s/s of acute distress noted at this time. Pt remained in stable condition. Safe environment implemented.
--- NOTE | 2018-04-12 08:00 | NUR ---
RESTING IN BED NO ACUTE DISTRESS NO PAIN ON ASPIRATION AND FALL PRECAUTION BED ALARM ON AND CALL LIGHT IN REACH
[2018-04-12] MEDS: DIVALPROEX SPRINKLE 125 MG CAP.SPRINK PO SCH (08:29)
[2018-04-12] MEDS: ESCITALOPRAM OXALATE 10 MG TABLET PO SCH (08:29)
[2018-04-12] MEDS: DOCUSATE SODIUM 100 MG CAPSULE PO SCH (08:29)
[2018-04-12] MEDS: ENOXAPARIN SODIUM 40 MG/0.4 ML DISP.SYRIN SQ SCH (08:32)
--- NOTE | 2018-04-12 09:00 | NUR ---
EAT BREAKFAST WELL PO FLD RESTRICTION 1000ML/DAY EXPLAINED
--- NOTE | 2018-04-12 09:30 | NUR ---
REPORT GIVEN TO MODE RIVERA
--- NOTE | 2018-04-12 11:31 | NUR ---
Pt in bed awake, alert, English speaker only, able to follow direction, no distress.
[2018-04-12 11:42] VITALS: BP 112/69
--- NOTE | 2018-04-12 14:00 | NUR ---
pt has orders to be dc to [facility], pt is awake, alert, oriented x1-2 French speaker only, pt is stable, no c/o discomfort.
--- NOTE | 2018-04-12 15:00 | NUR ---
Zulema Amaya was called spoke with Lotus RIVERA report was given to her, all test and pt's record will be send with pt, pt stable HL dc now, pt is ready to be dc, pt does not have no family listed in paper work.
[2018-04-12 15:31] VITALS: BP 121/66
== END 2018-04-12 16:30 | DRG 682 ==
LOC: ER 23:41 → MED 04-09 01:40
PROVIDERS: ADMIT Nurse Practitioner Acute Care; ATTEND Nurse Practitioner Acute Care
DX: N17.0 Acute kidney failure with tubular necrosis (principal); G93.41 Metabolic encephalopathy; E87.1 Hypo-osmolality and hyponatremia; J81.1 Chronic pulmonary edema; E78.5 Hyperlipidemia, unspecified; R32 Unspecified urinary incontinence; F03.90 Unspecified dementia, unspecified severity, without behavioral disturbance, psychotic disturbance, mood disturbance, and anxiety; D63.8 Anemia in other chronic diseases classified elsewhere; Z79.899 Other long term (current) drug therapy; E86.1 Hypovolemia; E83.42 Hypomagnesemia; E11.9 Type 2 diabetes mellitus without complications; Z79.84 Long term (current) use of oral hypoglycemic drugs; E83.51 Hypocalcemia; E87.5 Hyperkalemia; I10 Essential (primary) hypertension; K80.50 Calculus of bile duct without cholangitis or cholecystitis without obstruction; R74.0 Nonspecific elevation of levels of transaminase and lactic acid dehydrogenase [LDH]; R50.9 Fever, unspecified; I95.9 Hypotension, unspecified
CPT/HCPCS: 36415; 70030-TC; 71045; 76700; 83605; 83690; 83735; 84100; 84156; 84300; 84443; 85025; 85730; 86706; 86803; 87040; 87086; 87340; 87400; 93005; 97530; A4663; J0696; J1650; J1815; J3475; J7030; J7040; J7060

== ENCOUNTER 2018-08-21 01:02 | Emergency (ER) | payer MEDICARE, OTHER ==
[~2018-08-21] VITALS: Ht 172.7 cm; Wt 68.9 kg
[~2018-08-21 01:02] MED LIST changes: +DIVA125C2 PO; +DOCU100C36 PO; +DONE10TA44 PO; +ESCI10TA PO; -LISI-603 PO; +LISI-607 PO; +LORA0.5T PO; +METF-442 PO; +ONDA4TAB8 PO; +TEMA15CA PO
[2018-08-21] MEDS ORDERED: MULT1TAB73 PO (01:24)
[2018-08-21] MEDS ORDERED: CLOTRIMAZOLE 1% CREAM 30 GM TUBE TOP SCH (01:30)
--- NOTE | 2018-08-21 01:30 | NUR ---
Pt. BIB BLS for red rashy inflammation of penis, pt. is alert to name only but follows commands, was able to urinate - specimen sent to lab,
[2018-08-21 01:45] LABS: *BILIRUBIN,URIN NEGATIVE (NEGATIVE); *BLOOD, URINE NEGATIVE (NEGATIVE); *CLARITY,URINE CLEAR (CLEAR); *COLOR,URINE YELLOW (YELLOW); *KETONES,URINE TRACE (NEGATIVE); *PROTEIN,URINE NEGATIVE (NEGATIVE); *UROBILINOGEN,URINE 0.2 E.U./dl (NORMAL); LEUKOCYTE ESTERASE ,URINE 1+ (NEGATIVE); NITRITE, URINE NEGATIVE (NEGATIVE); PH,URINE 5.5 (5.0-8.0); UGLUCOSE NEGATIVE (NEGATIVE)
[2018-08-21 01:49] LABS: BACTERIA,URINE NONE SEEN /HPF (NONE SEEN); RBC,URINE 0-3 /HPF (0-3); SQUAMOUS EPITHELIAL CELL,UR FEW /HPF (NONE SEEN)
--- NOTE | 2018-08-21 02:51 | NUR ---
[facility] here for transport, VSS, no acute distress,
[2018-08-21 03:02] VITALS: BP 120/70
== END 2018-08-21 03:03 | disposition home or self-care (01) ==
LOC: ER 01:06
DX: N48.1 Balanitis (principal); I10 Essential (primary) hypertension; E78.5 Hyperlipidemia, unspecified; E11.9 Type 2 diabetes mellitus without complications; Z79.84 Long term (current) use of oral hypoglycemic drugs; Z79.899 Other long term (current) drug therapy
CPT/HCPCS: A4663

== ENCOUNTER 2018-12-09 10:18 | Inpatient (IN) | payer MEDICARE, OTHER ==
[2018-12-09] VITALS (30 sets, daily range): BP systolic 75–114; BP diastolic 42–94
[~2018-12-09] VITALS: Ht 177.8 cm; Wt 64.5 kg
[~2018-12-09 10:18] MED LIST changes: +MULT1TAB73 PO
--- NOTE | 2018-12-09 10:30 | NUR ---
.RECEIVED PT FROM [facility], PT NOT EATING LOSS OF APPETITE, GENERALIZE WEAKNESS, UPON ARRIVAL ECG DONE, FULL LAB WORK UP DONE, G20 IV LINE INSERTED ON RT FOREARM,
[2018-12-09] MEDS ORDERED: CLOT15CR63 TP (10:36)
[2018-12-09] MEDS ORDERED: IV NORMAL SALINE 1000 ML BAG IV ONE ×2 (11:00→11:30)
[2018-12-09 11:13] LABS: BASOPHILS % (AUTO) 0.1 % (0.0-2.0); EOSINOPHILS % (AUTO) 0.1 % (0.0-7.0); HEMATOCRIT 35.7 % (36.7-47.1); HEMOGLOBIN 12.1 g/dL (12.5-16.3); LYMPHOCYTES # (AUTO) 0.3 K/uL (20.0-40.0); LYMPHOCYTES % (AUTO) 4.3 % (20.5-51.5); MEAN CORPUSCULAR HEMOGLOBIN 32.6 uug (23.8-33.4); MEAN CORPUSCULAR HGB CONC 34 g/dL (32.5-36.3); MEAN CORPUSCULAR VOLUME 96.5 fL (73.0-96.2); MONOCYTES # (AUTO) 0.3 K/uL (2.0-10.0); MONOCYTES % (AUTO) 3.7 % (0.0-11.0); NEUTROPHILS % (AUTO) 91.8 % (38.5-71.5); PLATELET COUNT (AUTO) 174 K/uL (152-348); WHITE BLOOD COUNT (AUTO) 7.6 K/uL (3.6-10.2)
[2018-12-09 11:19] LABS: CREATININE 1.5 mg/dL (0.6-1.3); POTASSIUM 4.1 mmol/L (3.5-5.1)
[2018-12-09] MEDS ORDERED: ACETAMINOPHEN 325 MG SUPP RC ONE (11:30)
[2018-12-09] MEDS ORDERED: VANCOMYCIN IV 1,000 MG in IV DEXTROSE 5% 250 ML IV ONE (11:30)
[2018-12-09] MEDS ORDERED: PIPERACILLIN SODIUM/TAZOBACTAM 3.375 G in IV DEXTROSE 5% 50 ML IV ONE (11:30)
[2018-12-09] MEDS ORDERED: ACETAMINOPHEN 650 MG SUPP.RECT RC ONE ×2 (11:30→11:35)
[2018-12-09 11:32] LABS: BILIRUBIN,DIRECT 1.2 mg/dL (0.0-0.2); BILIRUBIN,TOTAL 1.6 mg/dL (0.2-1.0); TOTAL PROTEIN, SERUM 7.1 g/dL (6.4-8.2)
[2018-12-09] MEDS ORDERED: ACETAMINOPHEN 325 MG SUPP ONE (11:34)
[2018-12-09 11:43] LABS: *BILIRUBIN,URIN 2+ (NEGATIVE); *CLARITY,URINE CLEAR (CLEAR); *COLOR,URINE AMBER (YELLOW); *KETONES,URINE TRACE (NEGATIVE); *UROBILINOGEN,URINE >=8.0 E.U./dl (NORMAL); LEUKOCYTE ESTERASE ,URINE NEGATIVE (NEGATIVE); NITRITE, URINE NEGATIVE (NEGATIVE); UGLUCOSE NEGATIVE (NEGATIVE)
[2018-12-09 11:46] LABS: *BLOOD, URINE TRACE (NEGATIVE)
[2018-12-09 11:48] LABS: BACTERIA,URINE FEW /HPF (NONE SEEN); SQUAMOUS EPITHELIAL CELL,UR MODERATE /HPF (NONE SEEN)
[2018-12-09] MEDS ORDERED: PIPERACILLIN SODIUM/TAZO 3.375 GM VIAL ONE (11:48)
[2018-12-09] MEDS ORDERED: VANCOMYCIN IV 200 ML ONE (11:49)
[2018-12-09] MEDS ORDERED: PIPERACILLIN/TAZOBACTAM/D5W 50 ML IV ONE (11:49)
--- NOTE | 2018-12-09 13:30 | NUR ---
PATIENT BECAME HYPOTENSIVE, MD INFORMED ORDERED TO START PT ON LEVOPHED DRIP AND PREPARE FOR PT TO BE TRANSFERRED TO CCU, PT TO BE TRANSFERRED TO CCU ROOM 4, UNDER THE CARE OF THE DR GONZALEZ
[2018-12-09] MEDS ORDERED: NOREPINEPHRINE BITARTRATE 8 MG in IV DEXTROSE 5% 500 ML IV PRN (13:45)
--- NOTE | 2018-12-09 14:15 | NUR ---
FULL REPORT GIVEN TO NICOLE HALL
[2018-12-09] MEDS ORDERED: LEVOFLOXACIN 750MG/D5W 750 MG in PREMIXED 1 EACH IV STA (15:54)
--- NOTE | 2018-12-09 16:00 | NUR ---
Patient from ER at 1530, and settled to ICU bed 1. Did data base assessment. Called Dr Frankel for orders, patient on norepinephrine at 6 mcg per min to keep sbp greater than 90. Brendon Browning RN
--- NOTE | 2018-12-09 16:15 | NUR ---
Called family for picc line placement, and consent done. Brendon Browning RN
[2018-12-09] MEDS ORDERED: ACETAMINOPHEN 325 MG TABLET PO PRN (16:30)
[2018-12-09] MEDS ORDERED: MORPHINE SULFATE 2 MG/1 ML DISP.SYRIN IV PRN (16:30)
[2018-12-09] MEDS ORDERED: NOREPINEPHRINE BITARTRATE 16 MG in IV DEXTROSE 5% 500 ML IV PRN ×2 (16:30→16:45)
[2018-12-09] MEDS ORDERED: ONDANSETRON 4 MG/2 ML VIAL IV PRN (16:30)
--- NOTE | 2018-12-09 16:30 | NUR ---
Consent for right upper arm picc line insertion signed by Mitzi (daughter). Daughter alert and oriented during the signing of the consent and is aware of the procedure to be done.
--- NOTE | 2018-12-09 17:25 | NUR ---
PHARMACY CLINICAL NOTES ( VANCOMYCIN DOSING) S: 68 yo male with altered mental status; DX: possible sepsis; ordered Vancomycin ,on Zosyn as well, blood & Urine CX pending O: BUN/SCR 26/1.5, WBC 7.6, TEMP 100.6, DOSING WT 168 LBS, CRCL 47.99 ML/MIN A/P: PT received Vancomycin 1 gm in ER @ 11:48. will dose Vancomycin @ 1250 mg IVPB q20hr first dose @ 1800. Estimated peak of 40 and trough of 17. Plan to ck trough prior to 4th dose of Vanco (not ordered yet). will monitor renal fxn and adjust the dose if necessary.
[2018-12-09] MEDS: DOCUSATE SODIUM 100 MG CAPSULE PO SCH (17:51)
[2018-12-09] MEDS: PIPERACILLIN/TAZOBACTAM/D5W 2.25 G in PREMIXED 1 EACH IV SCH ×2 (18:34→23:50)
[2018-12-09] MEDS: VANCOMYCIN IV 1,250 MG in IV DEXTROSE 5% 500 ML IV SCH (18:34)
[2018-12-09] MEDS: DIVALPROEX SPRINKLE 125 MG CAP.SPRINK PO SCH (21:05)
[2018-12-09] MEDS: DONEPEZIL 10 MG TABLET PO SCH (21:05)
[2018-12-10] VITALS (53 sets, daily range): BP systolic 84–127; BP diastolic 49–83
[2018-12-10 04:32] LABS: BASOPHILS % (AUTO) 0.2 % (0.0-2.0); EOSINOPHILS % (AUTO) 0.4 % (0.0-7.0); HEMATOCRIT 29.3 % (36.7-47.1); HEMOGLOBIN 9.9 g/dL (12.5-16.3); LYMPHOCYTES # (AUTO) 1.3 K/uL (20.0-40.0); LYMPHOCYTES % (AUTO) 12.3 % (20.5-51.5); MEAN CORPUSCULAR HEMOGLOBIN 32.6 uug (23.8-33.4); MEAN CORPUSCULAR HGB CONC 34 g/dL (32.5-36.3); MEAN CORPUSCULAR VOLUME 96.2 fL (73.0-96.2); MONOCYTES # (AUTO) 0.8 K/uL (2.0-10.0); MONOCYTES % (AUTO) 7.6 % (0.0-11.0); NEUTROPHILS # (AUTO) 8.4 K/uL (1.8-8.9); NEUTROPHILS % (AUTO) 79.5 % (38.5-71.5); PLATELET COUNT (AUTO) 153 K/uL (152-348); RED BLOOD CELL COUNT(AUTO) 3.04 MIL/uL (4.06-5.63); WHITE BLOOD COUNT (AUTO) 10.5 K/uL (3.6-10.2)
[2018-12-10 04:57] LABS: BILIRUBIN,TOTAL 1.8 mg/dL (0.2-1.0); CREATININE 1.4 mg/dL (0.6-1.3); MAGNESIUM 1.3 mg/dL (1.8-2.4); PHOSPHOROUS 2.6 mg/dL (2.5-4.9); POTASSIUM 4.1 mmol/L (3.5-5.1); TOTAL PROTEIN, SERUM 6.1 g/dL (6.4-8.2)
[2018-12-10] MEDS: PIPERACILLIN/TAZOBACTAM/D5W 2.25 G in PREMIXED 1 EACH IV SCH ×4 (05:30→23:18)
--- NOTE | 2018-12-10 08:00 | NUR ---
Received patient on 5 mcg/min -levophed drip, and will titrate down. Patient is able to answer simple questions in Monegasque with clear speach. Brendon Browning RN
[2018-12-10] MEDS: DIVALPROEX SPRINKLE 125 MG CAP.SPRINK PO SCH ×2 (08:40→20:32)
[2018-12-10] MEDS: ESCITALOPRAM OXALATE 10 MG TABLET PO SCH (08:40)
[2018-12-10] MEDS: DOCUSATE SODIUM 100 MG CAPSULE PO SCH ×2 (08:40→17:34)
[2018-12-10] MEDS: PANTOPRAZOLE SODIUM 40 MG VIAL IV SCH (09:43)
--- NOTE | 2018-12-10 10:15 | NUR ---
Patient weaned off levophed, and will continue to monitor vs, sbp to keep > 90. Brendon Browning RN
[2018-12-10] MEDS: MAGNESIUM SULFATE/D5W 100 ML IV SCH ×3 (10:18→12:27)
--- NOTE | 2018-12-10 11:33 | NUR ---
PHARMACY CLINICAL NOTES ( VANCOMYCIN DOSING) S: 68 yo male with altered mental status; DX: possible sepsis; MD ordered Vancomycin ,on Zosyn as well, blood & Urine CX pending O: BUN/SCR 20/1.4, WBC 10.5, TEMP 99.6, DOSING WT 168 LBS, CRCL 47.99 ML/MIN A/P: Will continue Vancomycin @ 1250 mg IVPB q20hr for estimated trough of 1700, 2nd dose is today at 1400. Plan to check trough prior to 4th dose of Vanco (not ordered yet). will monitor renal fxn and adjust the dose if necessary.
--- NOTE | 2018-12-10 13:00 | NUR ---
Patient needs assist with lunch, and does consume 50%. Repositioned to comfort. Brendon Browning RN
[2018-12-10] MEDS: VANCOMYCIN IV 1,250 MG in IV DEXTROSE 5% 500 ML IV SCH (14:01)
[2018-12-10] MEDS: SOD FERRIC GLUC COMPLX/SUCROSE 125 MG in IV NORMAL SALINE 100 ML IV SCH (14:11)
--- NOTE | 2018-12-10 15:00 | NUR ---
Patient incont of urine, and bathed, and complete bed change and repositioned to comfort. Brendon Browning RN
--- NOTE | 2018-12-10 18:25 | NUR ---
Patient lab value gram negative rods called to texted to Dr Frankel. Brendon Browning RN
--- NOTE | 2018-12-10 18:42 | NUR ---
Dr Frankel responds to text and will consult ID. Brendon Browning RN
--- NOTE | 2018-12-10 19:30 | NUR ---
Chan catheter easily inserted.
[2018-12-10] MEDS: CULTURELLE CAPSULE PO SCH (20:32)
[2018-12-10] MEDS: DONEPEZIL 10 MG TABLET PO SCH (20:33)
--- NOTE | 2018-12-10 21:00 | NUR ---
Feeder: Ate late dinner 100%.
--- NOTE | 2018-12-10 21:50 | NUR ---
Positive blood cultures; already on antibiotics, I.D. specialist consulted / Dr Richard.
[2018-12-10] MEDS: IV NORMAL SALINE 250 ML IV PRN (23:18)
[2018-12-11] VITALS (24 sets, daily range): BP systolic 93–129; BP diastolic 47–77
[2018-12-11 05:04] LABS: BASOPHILS % (AUTO) 0.4 % (0.0-2.0); EOSINOPHILS # (AUTO) 0.1 K/uL (0.0-0.7); HEMATOCRIT 28.6 % (36.7-47.1); HEMOGLOBIN 9.8 g/dL (12.5-16.3); LYMPHOCYTES # (AUTO) 0.9 K/uL (20.0-40.0); LYMPHOCYTES % (AUTO) 14.6 % (20.5-51.5); MEAN CORPUSCULAR HEMOGLOBIN 32.5 uug (23.8-33.4); MEAN CORPUSCULAR HGB CONC 34 g/dL (32.5-36.3); MEAN CORPUSCULAR VOLUME 95.2 fL (73.0-96.2); MONOCYTES # (AUTO) 0.4 K/uL (2.0-10.0); MONOCYTES % (AUTO) 7.1 % (0.0-11.0); NEUTROPHILS # (AUTO) 4.6 K/uL (1.8-8.9); NEUTROPHILS % (AUTO) 75.9 % (38.5-71.5); PLATELET COUNT (AUTO) 130 K/uL (152-348); RED BLOOD CELL COUNT(AUTO) 3.01 MIL/uL (4.06-5.63)
[2018-12-11] MEDS: PIPERACILLIN/TAZOBACTAM/D5W 2.25 G in PREMIXED 1 EACH IV SCH ×3 (05:26→17:37)
[2018-12-11 05:47] LABS: BILIRUBIN,TOTAL 0.6 mg/dL (0.2-1.0); CREATININE 1.7 mg/dL (0.6-1.3); MAGNESIUM 1.9 mg/dL (1.8-2.4); PHOSPHOROUS 3.2 mg/dL (2.5-4.9); POTASSIUM 4.1 mmol/L (3.5-5.1)
--- NOTE | 2018-12-11 08:00 | NUR ---
Patient is awake and alert, he is hungry and is requesting breakfast, he is a feeder and consumes 100%. SR on monitor without ectopy. Urine output QS. Brendon Browning RN
--- NOTE | 2018-12-11 10:00 | NUR ---
Patient resting quietly in bed. VSS, afebrile. No co pain. Brendon Browning RN
[2018-12-11] MEDS: DIVALPROEX SPRINKLE 125 MG CAP.SPRINK PO SCH ×2 (10:24→20:40)
[2018-12-11] MEDS: CULTURELLE CAPSULE PO SCH ×2 (10:24→20:40)
[2018-12-11] MEDS: PANTOPRAZOLE SODIUM 40 MG VIAL IV SCH (10:24)
[2018-12-11] MEDS: ESCITALOPRAM OXALATE 10 MG TABLET PO SCH (10:24)
[2018-12-11] MEDS: DOCUSATE SODIUM 100 MG CAPSULE PO SCH ×2 (10:25→17:37)
[2018-12-11] MEDS ORDERED: VANCOMYCIN IV 1 G in PREMIXED 0 EACH IV ONE (10:30)
--- NOTE | 2018-12-11 10:31 | NUR ---
PHARMACY CLINICAL NOTES ( VANCOMYCIN DOSING) S: 68 yo male with altered mental status; DX: possible sepsis; ordered Vancomycin, blood & Urine CX pending O: BUN/SCR 17/1.7 (yesterday 1.4), WBC 6.0, TEMP 98.4, DOSING WT now 141 lbc (decrease from 168) Early level 30min before third scheduled dose today @0935: 15.6 Next random level pending with tomorrow am labs A/P: Based on unstable renal function, weight fluctuation, will stop regimen and start to dose per level. Random level today is 15.6. This was taken 30min before previously third scheduled dose that was originally due at 1000. Per level and weight based dosing, will dose 1gm x 1 today at 1030. Next random level ordered for tomorrow with am labs. Will check and redose as needed. Will follow
[2018-12-11 11:07] LABS: HEPATITIS A AB, IgM Negative (Negative); HEPATITIS B SURFACE AB Reactive (.); HEPATITIS B SURFACE AG Negative (Negative)
--- NOTE | 2018-12-11 12:00 | NUR ---
Patient awaiting lunch, and feeder and eating 80%. No co pain. Skin intact, and patient can turn himself. Brendon Browning RN
[2018-12-11] MEDS: IV D5/ 0.9% NACL 1,000 ML IV PRN ×2 (13:38→23:25)
--- NOTE | 2018-12-11 14:00 | NUR ---
Daughter visits patient updated on condition, and given privacy to visit. Brendon Browning RN
[2018-12-11] MEDS: SOD FERRIC GLUC COMPLX/SUCROSE 125 MG in IV NORMAL SALINE 100 ML IV SCH (15:53)
--- NOTE | 2018-12-11 18:00 | NUR ---
Patient with daughter at bedside visiting, updated and given privacy to visit. Family member feeding patient dinner. Brendon Browning RN
--- NOTE | 2018-12-11 19:30 | NUR ---
Awake, alert, confused. Speaks/understands mostly Swedish. Seen and evaluated by Nerlinda for ID consult, new orders noted and carried out. Blood cultures x 2 done, spec for urine C&S and stool for OB sent to lab. Denies pain/discomfort. Resp easy and regular with excellent sats on room air. Remains off Levophed and VS stable. SR without ectopy. Nursing comfort measures observed at all times. Please see CCU flowsheet for full assessment and clinical data.
[2018-12-11] MEDS: MEROPENEM 500 MG in IV NORMAL SALINE 50 ML IV SCH (20:36)
[2018-12-11] MEDS: DONEPEZIL 10 MG TABLET PO SCH (20:39)
[2018-12-11 22:37] LABS: *OCCULT BLOOD STOOL NEGATIVE (NEGATIVE)
[2018-12-11] MEDS: IV NORMAL SALINE 250 ML IV PRN (23:26)
[2018-12-12] VITALS (12 sets, daily range): BP systolic 88–141; BP diastolic 52–81
--- NOTE | 2018-12-12 00:01 | NUR ---
Cleaned for another large pasty stools. Total bath and skin care done. Denies any discomfort. VS and rhythm remains stable. Continues to sleep.
[2018-12-12 05:20] LABS: BASOPHILS % (AUTO) 0.4 % (0.0-2.0); EOSINOPHILS # (AUTO) 0.1 K/uL (0.0-0.7); EOSINOPHILS % (AUTO) 2.3 % (0.0-7.0); HEMATOCRIT 30.1 % (36.7-47.1); HEMOGLOBIN 10.2 g/dL (12.5-16.3); LYMPHOCYTES # (AUTO) 1.2 K/uL (20.0-40.0); MEAN CORPUSCULAR HEMOGLOBIN 32.4 uug (23.8-33.4); MEAN CORPUSCULAR HGB CONC 34 g/dL (32.5-36.3); MEAN CORPUSCULAR VOLUME 95.6 fL (73.0-96.2); MONOCYTES # (AUTO) 0.5 K/uL (2.0-10.0); MONOCYTES % (AUTO) 10.1 % (0.0-11.0); NEUTROPHILS # (AUTO) 2.9 K/uL (1.8-8.9); NEUTROPHILS % (AUTO) 61.2 % (38.5-71.5); PLATELET COUNT (AUTO) 140 K/uL (152-348); RED BLOOD CELL COUNT(AUTO) 3.15 MIL/uL (4.06-5.63); WHITE BLOOD COUNT (AUTO) 4.7 K/uL (3.6-10.2)
[2018-12-12 05:48] LABS: CREATININE 1.1 mg/dL (0.6-1.3); MAGNESIUM 1.7 mg/dL (1.8-2.4); PHOSPHOROUS 3.1 mg/dL (2.5-4.9); POTASSIUM 4.2 mmol/L (3.5-5.1); VANCOMYCIN,RANDOM 15.1 ug/mL (18.0-26.0)
--- NOTE | 2018-12-12 06:00 | NUR ---
Restful, comfortable night. Stable rhythm and VS. Remains pain/discomfort-free. Please see CCU flowsheet for trends and clinical data.
[2018-12-12] MEDS: MEROPENEM 500 MG in IV NORMAL SALINE 50 ML IV SCH ×2 (06:51→19:32)
[2018-12-12] MEDS: PANTOPRAZOLE SODIUM 40 MG TABLET.DR PO SCH (06:51)
[2018-12-12] MEDS: CULTURELLE CAPSULE PO SCH ×2 (08:37→20:17)
[2018-12-12] MEDS: DOCUSATE SODIUM 100 MG CAPSULE PO SCH ×2 (08:37→16:57)
[2018-12-12] MEDS: ESCITALOPRAM OXALATE 10 MG TABLET PO SCH (08:37)
[2018-12-12] MEDS: DIVALPROEX SPRINKLE 125 MG CAP.SPRINK PO SCH ×2 (08:44→20:17)
[2018-12-12] MEDS ORDERED: VANCOMYCIN IV 1 G in PREMIXED 0 EACH IV SCH (09:00)
[2018-12-12] MEDS ORDERED: MAGNESIUM OXIDE 400 MG TABLET PO ONE (11:30)
--- NOTE | 2018-12-12 12:20 | NUR ---
Attending Dr. Jesus Handy in the unit to examine pt. full report given. See orders.
--- NOTE | 2018-12-12 14:32 | NUR ---
PHARMACY CLINICAL NOTES ( VANCOMYCIN DOSING) S: To continue vanco dosing for this 68 yo male with Bacteremia==> GPC/GNR O: BUN/SCR 13/1.1 (decreasing), WBC 4.7, TEMP 98.3, DOSING WT now 141 lb (decrease from 168 lb) Vanco random level: 15.1 (with am labs today) A/P: Since srcr has decreased & vanco random is 15.1 mcg/ml today, will start vanco 1 g, IVPB q17h for predicted vanco trough level of 18 mcg/ml at steady state. 1st dose today at 0900. Plan to order vanco trough level before 4thd dose of current regimen (not yet ordered). Pharmacist shall check srcr in am & adjust the dose if needed. Will follow
[2018-12-12] MEDS: IV D5/ 0.9% NACL 1,000 ML IV PRN ×2 (18:14→21:21)
[2018-12-12] MEDS: DONEPEZIL 10 MG TABLET PO SCH (20:17)
--- NOTE | 2018-12-12 21:00 | NUR ---
received pt from CCU transfer received report from rolando Bell alert, confused of time and place. denies any pain, no acute distress, taylor intact but noted urine in the pads. but no leaking noted, no bm, skin intact and dry.sinus rhythm on monitor, 3 lumen picc, restarted iv fluid infusing. will continue to monitor.vss,afebrile
[2018-12-12] MEDS: LEVOFLOXACIN 500 MG TABLET PO SCH (21:21)
[2018-12-13 00:04] VITALS: BP 142/78
[2018-12-13 04:00] VITALS: BP 132/65
[2018-12-13 05:53] LABS: BASOPHILS % (AUTO) 0.4 % (0.0-2.0); EOSINOPHILS # (AUTO) 0.1 K/uL (0.0-0.7); EOSINOPHILS % (AUTO) 2.2 % (0.0-7.0); HEMOGLOBIN 10.5 g/dL (12.5-16.3); LYMPHOCYTES # (AUTO) 1.5 K/uL (20.0-40.0); MEAN CORPUSCULAR HEMOGLOBIN 33.5 uug (23.8-33.4); MEAN CORPUSCULAR HGB CONC 35 g/dL (32.5-36.3); MEAN CORPUSCULAR VOLUME 95.4 fL (73.0-96.2); MONOCYTES # (AUTO) 0.5 K/uL (2.0-10.0); MONOCYTES % (AUTO) 12.6 % (0.0-11.0); NEUTROPHILS % (AUTO) 47.8 % (38.5-71.5); PLATELET COUNT (AUTO) 145 K/uL (152-348); RED BLOOD CELL COUNT(AUTO) 3.14 MIL/uL (4.06-5.63); WHITE BLOOD COUNT (AUTO) 4.1 K/uL (3.6-10.2)
[2018-12-13 06:00] LABS: MAGNESIUM 1.4 mg/dL (1.8-2.4); PHOSPHOROUS 2.9 mg/dL (2.5-4.9); POTASSIUM 4.2 mmol/L (3.5-5.1)
[2018-12-13] MEDS: PANTOPRAZOLE SODIUM 40 MG TABLET.DR PO SCH (06:46)
--- NOTE | 2018-12-13 07:10 | NUR ---
RECEIVED PATIENT IN BED, CONFUSED. PATIENT DENIES PAIN OR SOB. RIGHT ARM 3 LUMEN PICC LINE. WHITE LUMEN UNABLE TO FLUSH AND NO BLOOD RETURN. RED AND PURPLE LUMENS FLUSHED AND BLOOD RETURN NOTED. PATIENT ON D5 NS AT 100C/HR. ALL NEEDS MET AT THIS TIME. SAFETY AND FALL PRECAUTIONS IN PLACE. BED IN LOW POSITION. CALL LIGHT IN REACH. WILL CONTINUE TO MONITOR
[2018-12-13] MEDS: IV D5/ 0.9% NACL 1,000 ML IV PRN (07:40)
[2018-12-13] MEDS: DOCUSATE SODIUM 100 MG CAPSULE PO SCH ×2 (08:58→16:27)
[2018-12-13] MEDS: DIVALPROEX SPRINKLE 125 MG CAP.SPRINK PO SCH ×2 (08:58→20:03)
[2018-12-13] MEDS: ESCITALOPRAM OXALATE 10 MG TABLET PO SCH (08:58)
[2018-12-13] MEDS: CULTURELLE CAPSULE PO SCH ×2 (08:59→20:04)
[2018-12-13 11:00] VITALS: BP 118/53
[2018-12-13] MEDS ORDERED: MAGNESIUM SULFATE 2 GM in IV DEXTROSE 5% 100 ML IV ONE (13:30)
[2018-12-13] MEDS: MAGNESIUM SULFATE/D5W 100 ML IV SCH ×2 (14:43→16:27)
[2018-12-13] MEDS: ASPIRIN EC 81 MG TABLET.DR PO SCH (14:43)
[2018-12-13] MEDS: SIMVASTATIN 20 MG TABLET PO SCH ×2 (14:43→20:09)
[2018-12-13 15:30] VITALS: BP 120/66
--- NOTE | 2018-12-13 18:40 | NUR ---
PATIENT ALERT AND ORIENTED X1 TO SELF. DENIES PAIN OR SOB. COMPLIANT WITH ALL MEDICATIONS AND CARE. TRIPLE LUMEN PICC LINE HL. PT. DC FROM TELEMETRY ORDERED. PATIENT COUGHING WHILE EATING, NOTIFIED AND SWALLOW EVAL ORDERED. VITAL SIGNS STABLE THROUGHOUT THE SHIFT. SAFETY AND FALL MEASURES IN PLACE. ASPIRATION PRECAUTIONS IN PLACE. ALL NEEDS MET THROUGHOUT THE SHIFT.
[2018-12-13 20:00] VITALS: BP 131/72
--- NOTE | 2018-12-13 20:00 | NUR ---
Received patient AAOx1 to self resting in bed. Mainly South Korean speaking. No s/s of acute distress at this time. Denies pain. Tolerated routine meds. Triple Lumen PICC intact and patent. Chan in place with clear, yellow urine output. Fall precautions and comfort measures implemented. Bed in lowest and locked position. Call light within reach. All needs met at this time. Will monitor throughout shift.
[2018-12-13] MEDS: LEVOFLOXACIN 500 MG TABLET PO SCH (20:04)
[2018-12-13] MEDS: DONEPEZIL 10 MG TABLET PO SCH (20:05)
[2018-12-14 04:49] VITALS: BP 137/76
[2018-12-14] MEDS: PANTOPRAZOLE SODIUM 40 MG TABLET.DR PO SCH (06:17)
--- NOTE | 2018-12-14 06:30 | NUR ---
Patient slept throughout the night. Chan catheter removed. No acute distress noted. Denies pain. VSS. Safety measures implemented and effective. Continue plan of care.
[2018-12-14 06:41] LABS: BASOPHILS % (AUTO) 0.4 % (0.0-2.0); EOSINOPHILS # (AUTO) 0.1 K/uL (0.0-0.7); EOSINOPHILS % (AUTO) 2.4 % (0.0-7.0); HEMATOCRIT 31.8 % (36.7-47.1); LYMPHOCYTES # (AUTO) 1.8 K/uL (20.0-40.0); MEAN CORPUSCULAR HEMOGLOBIN 32.5 uug (23.8-33.4); MEAN CORPUSCULAR HGB CONC 35 g/dL (32.5-36.3); MEAN CORPUSCULAR VOLUME 93.9 fL (73.0-96.2); MONOCYTES # (AUTO) 0.6 K/uL (2.0-10.0); MONOCYTES % (AUTO) 10.9 % (0.0-11.0); NEUTROPHILS # (AUTO) 2.9 K/uL (1.8-8.9); NEUTROPHILS % (AUTO) 53.3 % (38.5-71.5); PLATELET COUNT (AUTO) 171 K/uL (152-348); RED BLOOD CELL COUNT(AUTO) 3.38 MIL/uL (4.06-5.63); WHITE BLOOD COUNT (AUTO) 5.4 K/uL (3.6-10.2)
[2018-12-14 06:52] LABS: CREATININE 1.1 mg/dL (0.6-1.3); MAGNESIUM 1.8 mg/dL (1.8-2.4); POTASSIUM 4.1 mmol/L (3.5-5.1)
[2018-12-14] MEDS: CULTURELLE CAPSULE PO SCH ×2 (08:40→20:25)
[2018-12-14] MEDS: ASPIRIN EC 81 MG TABLET.DR PO SCH (08:40)
[2018-12-14] MEDS: DIVALPROEX SPRINKLE 125 MG CAP.SPRINK PO SCH ×2 (08:40→20:25)
[2018-12-14] MEDS: DOCUSATE SODIUM 100 MG CAPSULE PO SCH ×2 (08:40→16:55)
[2018-12-14] MEDS: ESCITALOPRAM OXALATE 10 MG TABLET PO SCH (08:40)
--- NOTE | 2018-12-14 08:48 | NUR ---
Received patient, awake, alert x1. Angolan speaking. Not in any form of distress. Denies any pain. With inmt
--- NOTE | 2018-12-14 08:49 | NUR ---
With intact and patent right upper arm PICC line. Tolerated diet well. Took pills whole one at a time with no S/S of aspiration
--- NOTE | 2018-12-14 09:42 | NUR ---
Good urine output with moderately soaked diaper. No distention or pain noted.
[2018-12-14] MEDS ORDERED: LEVO500T2 PO (10:12)
[2018-12-14 11:12] VITALS: BP 133/79
[2018-12-14 15:04] VITALS: BP 125/74
--- NOTE | 2018-12-14 17:20 | NUR ---
Report given to Krysta/ NICOLE of [facility]. Discharge packet completed, patient unable to sign. Patient endorsed to Sonia/NICOLE
--- NOTE | 2018-12-14 17:30 | NUR ---
RECEIVED HANDOFF REPORT FROM CARRIE RIVERA
--- NOTE | 2018-12-14 18:52 | NUR ---
PATIENT ASLEEP ON BED, NO ACUTE DISTRESS NOTED. DISCHARGE PAPERS READY. AMBULANCE ACCESS ASSOC TIME AT 2029, WILL ENDORSE ACCORDINGLY
[2018-12-14 19:51] VITALS: BP 102/67
[2018-12-14] MEDS: LEVOFLOXACIN 500 MG TABLET PO SCH (20:25)
[2018-12-14] MEDS: SIMVASTATIN 20 MG TABLET PO SCH (20:25)
[2018-12-14] MEDS: DONEPEZIL 10 MG TABLET PO SCH (20:25)
--- NOTE | 2018-12-14 20:25 | NUR ---
Received patient asleep in bed. Tolerated routine medications. No distress noted. Denies pain. PICC line removed. Placed in Trendelenburg position. Catheter discontinued per MD order. Site covered with clean and secure dressing. No discharge, no swelling, and no redness. Monitored for active bleeding but none noted. Awaiting ambulance pick up man.
== END 2018-12-14 22:09 | DRG 871 ==
LOC: ER 10:18 → CCU 14:38 → TELE3 12-12 20:59 → MEDSURG3 12-13 17:24
PROVIDERS: ADMIT Internal Medicine; ATTEND Internal Medicine
PROC: 02HV33Z Insertion of Infusion Device into Superior Vena Cava, Percutaneous Approach (ICD-10-PCS; principal; 2018-12-09)
PROC: 3E043XZ Introduction of Vasopressor into Central Vein, Percutaneous Approach (ICD-10-PCS; 2018-12-09)
DX: A41.51 Sepsis due to Escherichia coli [E. coli] (principal); N17.0 Acute kidney failure with tubular necrosis; G92 Toxic encephalopathy; R65.21 Severe sepsis with septic shock; E43 Unspecified severe protein-calorie malnutrition; K72.00 Acute and subacute hepatic failure without coma; N39.0 Urinary tract infection, site not specified; B19.10 Unspecified viral hepatitis B without hepatic coma; D68.59 Other primary thrombophilia; E87.0 Hyperosmolality and hypernatremia; I69.319 Unspecified symptoms and signs involving cognitive functions following cerebral infarction; F01.50 Vascular dementia, unspecified severity, without behavioral disturbance, psychotic disturbance, mood disturbance, and anxiety; M41.9 Scoliosis, unspecified; Z68.20 Body mass index [BMI] 20.0-20.9, adult; R32 Unspecified urinary incontinence; E11.9 Type 2 diabetes mellitus without complications; I67.2 Cerebral atherosclerosis; I70.0 Atherosclerosis of aorta; K57.30 Diverticulosis of large intestine without perforation or abscess without bleeding; E83.42 Hypomagnesemia; E78.5 Hyperlipidemia, unspecified; D69.6 Thrombocytopenia, unspecified; R33.9 Retention of urine, unspecified; Z74.09 Other reduced mobility; D53.9 Nutritional anemia, unspecified; I11.0 Hypertensive heart disease with heart failure; I50.9 Heart failure, unspecified; M19.90 Unspecified osteoarthritis, unspecified site; E78.00 Pure hypercholesterolemia, unspecified; Z79.84 Long term (current) use of oral hypoglycemic drugs; Z79.899 Other long term (current) drug therapy; R94.31 Abnormal electrocardiogram [ECG] [EKG]
CPT/HCPCS: 36415; 36569; 70030-TC; 70450; 71045; 83550; 83605; 83690; 83735; 84100; 84443; 85025; 85730; 86704; 86705; 86706; 86709; 86803; 87040; 87077; 87086; 87340; 87400; 92526; 92610; 93005; 93307; 97110; 97530; A4663; C1758; C9113; G0378; J1956; J2185; J2543; J2916; J3370; J3475; J3490; J7030; J7042; J7050; J7060

== ENCOUNTER 2020-01-22 22:09 | Inpatient (IN) | payer MEDICARE, OTHER ==
[~2020-01-22] VITALS: Ht 172.7 cm; Wt 60.9 kg
[~2020-01-22 22:09] MED LIST changes: +CLOT15CR63 TP; +LEVO500T2 PO; -LINA5TAB PO; -MELA3TAB PO; +SIMV-46 PO; -SIMV20TA6 PO; -TEMA15CA PO
--- NOTE | 2020-01-22 22:20 | NUR ---
PATIENT WAS MSE BY DR MORGAN IN ROOM 03A.
[2020-01-22 22:50] LABS: ABG BASE EXCESS -3.9 mmol/L; ABG HCO3 20.1 mmol/L; ABG PCO2 33.2 mmHg (35.0-45.0); ABG PO2 82.1 mmHg (75.0-100.0); ABG SITE RIGHT BRACHIAL; ABG TOTAL HEMOGLOBIN 12.1 G/dL (13.5-18.0); MetHb 0.2 % (0.0-1.5); O2Hb 94.6 % (94.0-97.0); VENT MODE ROOM AIR
[2020-01-22] MEDS ORDERED: LINA5TAB PO (22:51)
[2020-01-22 23:02] LABS: CREATININE 1.6 mg/dL (0.6-1.3); POTASSIUM 5.2 mmol/L (3.5-5.1)
[2020-01-22 23:05] LABS: BASOPHILS % (AUTO) 0.6 % (0.0-2.0); EOSINOPHILS # (AUTO) 0.2 K/uL (0.0-0.7); EOSINOPHILS % (AUTO) 2.7 % (0.0-7.0); HEMATOCRIT 34.4 % (36.7-47.1); HEMOGLOBIN 11.9 g/dL (12.5-16.3); LYMPHOCYTES # (AUTO) 2.6 K/uL (20.0-40.0); LYMPHOCYTES % (AUTO) 42.9 % (20.5-51.5); MEAN CORPUSCULAR HEMOGLOBIN 33.9 uug (23.8-33.4); MEAN CORPUSCULAR HGB CONC 35 g/dL (32.5-36.3); MONOCYTES # (AUTO) 0.5 K/uL (2.0-10.0); MONOCYTES % (AUTO) 7.5 % (0.0-11.0); NEUTROPHILS # (AUTO) 2.8 K/uL (1.8-8.9); NEUTROPHILS % (AUTO) 46.3 % (38.5-71.5); PLATELET COUNT (AUTO) 219 K/uL (152-348); RED BLOOD CELL COUNT(AUTO) 3.51 MIL/uL (4.06-5.63)
[2020-01-22 23:17] LABS: BILIRUBIN,TOTAL 0.2 mg/dL (0.2-1.0); TOTAL PROTEIN, SERUM 7.3 g/dL (6.4-8.2)
[2020-01-22 23:52] LABS: *BILIRUBIN,URIN NEGATIVE (NEGATIVE); *COLOR,URINE YELLOW (YELLOW); *KETONES,URINE 1+ (NEGATIVE); *UROBILINOGEN,URINE 0.2 E.U./dl (NORMAL); LEUKOCYTE ESTERASE ,URINE NEGATIVE (NEGATIVE); NITRITE, URINE NEGATIVE (NEGATIVE); PH,URINE 5.5 (5.0-8.0); UGLUCOSE NEGATIVE (NEGATIVE)
[2020-01-22 23:55] LABS: *BLOOD, URINE TRACE (NEGATIVE); *CLARITY,URINE HAZY (CLEAR)
[2020-01-23 00:07] LABS: BACTERIA,URINE NONE SEEN /HPF (NONE SEEN); RBC,URINE 20-50 /HPF (0-3); SQUAMOUS EPITHELIAL CELL,UR FEW /HPF (NONE SEEN); WBC,URINE 0-3 /HPF (0-3)
--- NOTE | 2020-01-23 00:55 | NUR ---
DR MORGAN SPOKE WITH DR PEDERSEN ACCEPTED PATIENT FOR ADMISSION.
--- NOTE | 2020-01-23 03:30 | NUR ---
Patient in bed. Isolation precautions done PUI.
--- NOTE | 2020-01-23 04:41 | NUR ---
Patient is resting comfortably in bed with eyes closed
--- NOTE | 2020-01-23 06:01 | NUR ---
Patient is resting comfortably in bed with eyes closed
--- NOTE | 2020-01-23 07:10 | NUR ---
RECEIVED HAND OFF AND SBAR FRO WASH TEST CHECKER NURSE PT IS ON ISOLATION/DROPLET/AIRBORNE PRECAUTIONS PT PUI, SWABBED DURING WASH TEST CHECKER RA, NAD, ASLEEP BUT EASILY ROUSED, COMFORTABLE PT PENDING TRANSPORT TO FLOOR TELE RM 204 DX: HYPERKALEMIA/ ACUTE RENAL FAILURE POSSIBLE COVID UNDER [facility]
--- NOTE | 2020-01-23 07:45 | NUR ---
HAND OFF AND SBAR GIVEN TO FEBRUARY RN BELONGINGS LIST ACCOUNTED FOR FULL CODE MRSA SWAB DONE
[2020-01-23 08:45] VITALS: BP 117/67
--- NOTE | 2020-01-23 09:00 | NUR ---
[facility]
--- NOTE | 2020-01-23 09:00 | NUR ---
RECEIVED PATIENT FROM ER AND ADMITTED TO COVID UNIT WITH ADMITTING DIAGNOSIS OF ACUTE RENAL FAILURE/ HYPERKALEMIA AND ALERT AND ORIENTED X2, SCOTTISH SPEAKING. IV INTACT AND PATENT. NO S/S SOB NOTED AND NO C/O PAIN AT THIS TIME. BELONGINGS ACCOUNTED FOR AND SIGNED. KEPT CLEAN AND DRY AT ALL TIMES. CONTINUE TO MONITOR.
[2020-01-23] MEDS: LINAGLIPTIN 5 MG TABLET PO SCH (11:45)
[2020-01-23] MEDS ORDERED: LORAZEPAM 0.5 MG TABLET PO PRN (11:45)
[2020-01-23] MEDS ORDERED: DIVALPROEX SPRINKLE 125 MG CAP.SPRINK PO SCH (11:45)
[2020-01-23] MEDS: LISINOPRIL 5 MG TABLET PO SCH (11:45)
[2020-01-23] MEDS: ESCITALOPRAM OXALATE 10 MG TABLET PO SCH (11:45)
[2020-01-23] MEDS ORDERED: DIVA125T2 PO (15:51)
[2020-01-23] MEDS ORDERED: METF500T20 PO (15:52)
[2020-01-23] MEDS ORDERED: ASCO500T85 PO (16:16)
[2020-01-23] MEDS ORDERED: Medication Not On Formulary EA (Metformin Hcl 1,000 MG) PO SCH (17:00)
[2020-01-23 17:07] VITALS: BP 135/70
[2020-01-23] MEDS ORDERED: METFORMIN XR 500 MG TAB.SR.24H PO SCH (18:00)
--- NOTE | 2020-01-23 19:11 | NUR ---
Patient awake and alert in bed, no signs of acute distress noted. Vitals WNL, no fevers noted. IV is intact and patent. Safety measures initiated. Bed is low and locked, call light within reach, bed alarm on. Will continue to monitor.
[2020-01-23 20:00] VITALS: BP 98/54
--- NOTE | 2020-01-23 20:00 | NUR ---
Received patient resting in bed, easily to alert. No signs of acute distress noted. A/Ox2, Malay speaking, able to follow commands. Heplock on the left AC is intact and patent. Vitals WNL, no fevers noted. No coughing noted. safety measures initiated. Bed is low and locked, call light within reach. will continue to monitor.
[2020-01-23] MEDS: DOCUSATE SODIUM 100 MG CAPSULE PO SCH (20:47)
[2020-01-23] MEDS: DIVALPROEX 125 MG TABLET.DR PO SCH (20:48)
[2020-01-23] MEDS: DONEPEZIL 10 MG TABLET PO SCH (20:48)
[2020-01-23] MEDS ORDERED: METFORMIN HCL 500 MG TABLET PO SCH (21:00)
[2020-01-24 01:00] VITALS: BP 105/60
[2020-01-24 05:00] VITALS: BP 101/62
--- NOTE | 2020-01-24 07:10 | NUR ---
Received patient resting in bed. No acute distress noted. Patient denies pain and discomfort. Bed in lowest position, side rails up x2, call light within reach. Will continue to monitor.
[2020-01-24] MEDS: DIVALPROEX 125 MG TABLET.DR PO SCH ×2 (08:26→21:15)
[2020-01-24] MEDS: ESCITALOPRAM OXALATE 10 MG TABLET PO SCH (08:26)
[2020-01-24] MEDS: DOCUSATE SODIUM 100 MG CAPSULE PO SCH ×2 (08:26→21:15)
[2020-01-24] MEDS: MULTIVITAMINS,THERAPEUTIC TABLET PO SCH (08:26)
[2020-01-24] MEDS: LINAGLIPTIN 5 MG TABLET PO SCH (08:26)
[2020-01-24] MEDS: LISINOPRIL 5 MG TABLET PO SCH (08:33)
[2020-01-24] MEDS ORDERED: Medication Not On Formulary EA (Multivitamins (Multivitamin) 1 TAB) PO SCH (09:00)
--- NOTE | 2020-01-24 09:30 | NUR ---
Lab result given from lab, Patient tested NEGATIVE for COVID.
--- NOTE | 2020-01-24 11:00 | NUR ---
Received transfer report from Janelle RIVERA
--- NOTE | 2020-01-24 12:00 | NUR ---
Transferred patient to 3rd floor Telemetry. Report given to Abhishek.
--- NOTE | 2020-01-24 12:00 | NUR ---
Pt transferred to MS3 via bed from 2nd floor awake able to answer yes or no questions and able to follow commands. On room air with no SOB or distress noted at this time. On tele SR. IV left AC 20g flushed and patent. Pt able to lift bilateral arms, but has mild weakness of bilateral legs. No wounds noted at this time. Bed locked in lowest position with siderails 2x up. Call light within reach. Will continue to monitor
[2020-01-24 15:08] VITALS: BP 102/59
--- NOTE | 2020-01-24 18:52 | NUR ---
Pt stable throughout shift. No SOB or distress noted. Able to eat dinner, fed by ECOLOGY TEACHER. Will endorse to next shift
--- NOTE | 2020-01-24 19:00 | NUR ---
PATIENT ALERT BUT FORGETFUL, NO SOB NO CHEST PAIN, PATIENT DENIES PAIN AT THIS TIME. PATIENT AFEBRILE NO COUGHING NOTED, KEPT COMFORTABLE, CONT TO MONITOR.
[2020-01-24 20:19] VITALS: BP 96/42
[2020-01-24] MEDS: SIMVASTATIN 20 MG TABLET PO SCH (21:15)
[2020-01-24] MEDS: DONEPEZIL 10 MG TABLET PO SCH (22:57)
[2020-01-25] VITALS (9 sets, daily range): BP systolic 70–105; BP diastolic 41–61
[2020-01-25 06:43] LABS: BASOPHILS % (AUTO) 0.2 % (0.0-2.0); EOSINOPHILS % (AUTO) 0.2 % (0.0-7.0); HEMOGLOBIN 10.8 g/dL (12.5-16.3); NEUTROPHILS # (AUTO) 10.4 K/uL (1.8-8.9)
--- NOTE | 2020-01-25 06:47 | NUR ---
PATIENT ALERT BUT FORGETFUL NO COMPLAIN OF PAIN, NO SOB NO CHEST PAIN, NO COUGHING NOTED, PATIENT BP ON THE LOW SIDE BUT ASYMPTOMATIC, KEPT CLEAN AND DRY. CONT TO MONITOR.
[2020-01-25 06:54] LABS: CREATININE 2.1 mg/dL (0.6-1.3); MAGNESIUM 1.6 mg/dL (1.8-2.4); POTASSIUM 4.5 mmol/L (3.5-5.1)
[2020-01-25 06:58] LABS: HEMATOCRIT 32.2 % (36.7-47.1); LYMPHOCYTES # (AUTO) 2.4 K/uL (20.0-40.0); LYMPHOCYTES % (AUTO) 16.9 % (20.5-51.5); MEAN CORPUSCULAR HEMOGLOBIN 33.1 uug (23.8-33.4); MEAN CORPUSCULAR HGB CONC 34 g/dL (32.5-36.3); MEAN CORPUSCULAR VOLUME 98.7 fL (73.0-96.2); MONOCYTES # (AUTO) 1.1 K/uL (2.0-10.0); MONOCYTES % (AUTO) 8.1 % (0.0-11.0); NEUTROPHILS % (AUTO) 74.6 % (38.5-71.5); PLATELET COUNT (AUTO) 203 K/uL (152-348); RED BLOOD CELL COUNT(AUTO) 3.26 MIL/uL (4.06-5.63)
--- NOTE | 2020-01-25 07:10 | NUR ---
CALLED DR. CERON AND LEFT MESSAGE TO EXCHANGE THAT PATIENT BP ON THE LOW SIDE 83/48, 80/44. PATIENT ALERT NO S/S OF DISTRESS, WAITING FOR MD TO RESPOND. CONT TO MONITOR.
--- NOTE | 2020-01-25 07:32 | NUR ---
DR CERON HAS NO RESPONSE YET, ENDORSED TO EZEKIEL RIVERA TO FOLLOW UP REGARDING BP LOW.
--- NOTE | 2020-01-25 08:19 | NUR ---
received pt. resting in bed in trendelenburg position. pt. states he does not feel dizzy or nauseous. pt. is warm to touch no fever. BP taken at bedside BP is 79/[address] Hamm order to give 1/2 a bag of NS bolus and to give NS at 85 cc/ hr after bolus is finished. will put in orders.
[2020-01-25] MEDS ORDERED: IV NORMAL SALINE 500 ML IV ONE (08:30)
[2020-01-25] MEDS: LISINOPRIL 5 MG TABLET PO SCH (09:00)
[2020-01-25] MEDS: ESCITALOPRAM OXALATE 10 MG TABLET PO SCH (09:07)
[2020-01-25] MEDS: MULTIVITAMINS,THERAPEUTIC TABLET PO SCH (09:07)
[2020-01-25] MEDS: DOCUSATE SODIUM 100 MG CAPSULE PO SCH ×2 (09:07→20:30)
[2020-01-25] MEDS: LINAGLIPTIN 5 MG TABLET PO SCH (09:07)
[2020-01-25] MEDS: DIVALPROEX 125 MG TABLET.DR PO SCH ×2 (09:07→20:30)
[2020-01-25] MEDS: IV NS 1000 ML 1,000 ML IV PRN ×2 (09:10→22:42)
--- NOTE | 2020-01-25 11:46 | NUR ---
after 500 cc bolus given and IV fluids started pt. blood pressure remains low systolic in 80s. Latest blood pressure at 89/49 Hr 80. Will call [facility] to inform Dr. Miguel RIVERA aware. Pt. in Trendelenburg position.
--- NOTE | 2020-01-25 11:50 | NUR ---
called [facility] to page doctor. awaiting phone call back from doctor for low BP. Pt. is stable resting comfortably.
[2020-01-25] MEDS ORDERED: MAGNESIUM SULFATE/D5W 100 ML IV SCH (12:30)
[2020-01-25] MEDS ORDERED: IV NS 1000 ML 1,000 ML IV ONE (12:45)
[2020-01-25] MEDS: SIMVASTATIN 20 MG TABLET PO SCH (20:30)
[2020-01-25] MEDS: DONEPEZIL 10 MG TABLET PO SCH (20:30)
--- NOTE | 2020-01-25 20:45 | NUR ---
Received pt resting in bed. AAO x2. Czech speaking. No acute distress noted. FLACC 0. Due meds given as ordered. IV on right FA #20, running NS 85 cc/ hr. Safety measures maintained. Call light within reach. Will continue to monitor.
[2020-01-25] MEDS ORDERED: PIPERACILLIN SODIUM/TAZOBACTAM 3.375 G in IV DEXTROSE 5% 50 ML IV SCH (22:00)
[2020-01-25] MEDS ORDERED: PIPERACILLIN/TAZOBACTAM/D5W 100 ML IV ONE (22:50)
[2020-01-25] MEDS: PIPERACILLIN SODIUM/TAZOBACTAM 3.375 G in IV DEXTROSE 5% 50 ML IV SCH (23:12)
[2020-01-26 04:00] VITALS: BP 117/54
[2020-01-26 05:38] LABS: BASOPHILS % (AUTO) 0.2 % (0.0-2.0); EOSINOPHILS # (AUTO) 0.2 K/uL (0.0-0.7); EOSINOPHILS % (AUTO) 1.4 % (0.0-7.0); HEMATOCRIT 29.1 % (36.7-47.1); HEMOGLOBIN 9.9 g/dL (12.5-16.3); LYMPHOCYTES # (AUTO) 1.9 K/uL (20.0-40.0); LYMPHOCYTES % (AUTO) 17.9 % (20.5-51.5); MEAN CORPUSCULAR HEMOGLOBIN 33.7 uug (23.8-33.4); MEAN CORPUSCULAR HGB CONC 34 g/dL (32.5-36.3); MEAN CORPUSCULAR VOLUME 98.7 fL (73.0-96.2); MONOCYTES # (AUTO) 0.9 K/uL (2.0-10.0); MONOCYTES % (AUTO) 8.3 % (0.0-11.0); NEUTROPHILS # (AUTO) 7.7 K/uL (1.8-8.9); NEUTROPHILS % (AUTO) 72.2 % (38.5-71.5); PLATELET COUNT (AUTO) 155 K/uL (152-348); RED BLOOD CELL COUNT(AUTO) 2.95 MIL/uL (4.06-5.63); WHITE BLOOD COUNT (AUTO) 10.6 K/uL (3.6-10.2)
[2020-01-26 05:45] LABS: CREATININE 1.4 mg/dL (0.6-1.3); MAGNESIUM 1.8 mg/dL (1.8-2.4); PHOSPHOROUS 3.2 mg/dL (2.5-4.9); POTASSIUM 4.3 mmol/L (3.5-5.1)
[2020-01-26] MEDS: PIPERACILLIN SODIUM/TAZOBACTAM 3.375 G in IV DEXTROSE 5% 50 ML IV SCH (06:13)
--- NOTE | 2020-01-26 07:35 | NUR ---
Received patient in bed, AOx2, awake. Denies sob or chest pain. no signs of distress. All needs met. Safety and fall prevention in place. call light in reach. Bed in low and locked position. Will continue to monitor.
[2020-01-26 08:00] VITALS: BP 116/62
[2020-01-26] MEDS: LINAGLIPTIN 5 MG TABLET PO SCH (08:21)
[2020-01-26] MEDS: DOCUSATE SODIUM 100 MG CAPSULE PO SCH (08:21)
[2020-01-26] MEDS: DIVALPROEX 125 MG TABLET.DR PO SCH (08:21)
[2020-01-26] MEDS: ESCITALOPRAM OXALATE 10 MG TABLET PO SCH (08:21)
[2020-01-26] MEDS: MULTIVITAMINS,THERAPEUTIC TABLET PO SCH (08:21)
[2020-01-26] MEDS: IV NS 1000 ML 1,000 ML IV PRN (13:14)
[2020-01-26] MEDS ORDERED: PIPERACILLIN SODIUM/TAZOBACTAM 3.375 G in IV DEXTROSE 5% 50 ML IV SCH (14:00)
[2020-01-26 16:08] VITALS: BP 105/55
--- NOTE | 2020-01-26 17:56 | NUR ---
Patient discharged to [facility] living via ambulance. Patient discharge instructions went over with patient and sent with patient. IV removed. Arm band removed. Patient left in stable condition. Patient left with all belongings.
== END 2020-01-26 18:00 | DRG 202 ==
LOC: ER 22:11 → TELE 01-23 08:02 → TELE3 01-24 12:24 → MEDSURG3 01-24 14:46
PROVIDERS: ADMIT Internal Medicine Nephrology; ATTEND Internal Medicine Nephrology
DX: J20.9 Acute bronchitis, unspecified (principal); N17.0 Acute kidney failure with tubular necrosis; G93.40 Encephalopathy, unspecified; J98.11 Atelectasis; E87.5 Hyperkalemia; R05 Cough; E78.5 Hyperlipidemia, unspecified; F03.90 Unspecified dementia, unspecified severity, without behavioral disturbance, psychotic disturbance, mood disturbance, and anxiety; I13.10 Hypertensive heart and chronic kidney disease without heart failure, with stage 1 through stage 4 chronic kidney disease, or unspecified chronic kidney disease; Z86.73 Personal history of transient ischemic attack (TIA), and cerebral infarction without residual deficits; D64.9 Anemia, unspecified; E11.22 Type 2 diabetes mellitus with diabetic chronic kidney disease; Z79.84 Long term (current) use of oral hypoglycemic drugs; N18.9 Chronic kidney disease, unspecified; I95.9 Hypotension, unspecified
CPT/HCPCS: 36415; 36600; 51702; 70030-TC; 71045; 83605; 83615; 83735; 84100; 85025; 85730; 86140; 87040; 87086; 87400; 93005; A4663; C1758; G0378; J2543; J3475; J7030; J7040; J7060